=== PATIENT | male | born 1945 | race Caucasian/White ===

== ENCOUNTER → 2020-01-16 | Outpatient (REF) | payer MEDICARE, OTHER ==
[2020-01-16 12:12] LABS: ALBUMIN 3.7 GM/DL (3.2-5.2); ALT/SGPT 45 U/L (12-78); BILIRUBIN,TOTAL 0.6 MG/DL (0.2-1.0); BLOOD UREA NITROGEN 22 MG/DL (7-18); CALCIUM LEVEL 9.3 MG/DL (8.8-10.2); CARBON DIOXIDE LEVEL 27 MEQ/L (21-32); CHLORIDE LEVEL 107 MEQ/L (98-107); CHOLESTEROL LEVEL 160 MG/DL (<200); CHOLESTEROL RISK RATIO 3.018 (<5); CREATININE FOR GFR 0.88 MG/DL (0.70-1.30); GLOMERULAR FILTRATION RATE > 60.0 (>42); GLUCOSE, FASTING 235 MG/DL (70-100); HDL CHOLESTEROL 53 MG/DL (>40); LDL CHOLESTEROL 60 MG/DL (<100); NON-HDL-C 107 MG/DL; POTASSIUM SERUM 4.7 MEQ/L (3.5-5.1); SODIUM LEVEL 140 MEQ/L (136-145); TRIGLYCERIDES LEVEL 233 MG/DL (<150)
== END ==
LOC: M SFHCCLAY 07:12
PROVIDERS: ATTEND Family Medicine
DX: I10 Essential (primary) hypertension (principal); E78.00 Pure hypercholesterolemia, unspecified; E03.9 Hypothyroidism, unspecified

== ENCOUNTER → 2020-05-07 | Outpatient (REF) | payer MEDICARE, OTHER ==
[2020-05-07 12:22] LABS: ALBUMIN 3.7 GM/DL (3.2-5.2); ALT/SGPT 41 U/L (12-78); BILIRUBIN,TOTAL 0.4 MG/DL (0.2-1.0); BLOOD UREA NITROGEN 22 MG/DL (7-18); CALCIUM LEVEL 9.5 MG/DL (8.8-10.2); CARBON DIOXIDE LEVEL 27 MEQ/L (21-32); CHLORIDE LEVEL 106 MEQ/L (98-107); CHOLESTEROL LEVEL 150 MG/DL (<200); CHOLESTEROL RISK RATIO 3.488 (<5); CREATININE FOR GFR 0.82 MG/DL (0.70-1.30); GLOMERULAR FILTRATION RATE > 60.0 (>42); GLUCOSE, FASTING 176 MG/DL (70-100); HDL CHOLESTEROL 43 MG/DL (>40); LDL CHOLESTEROL 48 MG/DL (<100); NON-HDL-C 107 MG/DL; POTASSIUM SERUM 4.2 MEQ/L (3.5-5.1); SODIUM LEVEL 141 MEQ/L (136-145); TOTAL PROTEIN 7.1 GM/DL (6.4-8.2); TRIGLYCERIDES LEVEL 297 MG/DL (<150)
[2020-05-07 13:47] LABS: HEMOGLOBIN A1c 9.6 %
== END ==
LOC: M SFHCCLAY 07:27
PROVIDERS: ATTEND Family Medicine
DX: E11.9 Type 2 diabetes mellitus without complications (principal); I10 Essential (primary) hypertension; E03.9 Hypothyroidism, unspecified; E78.00 Pure hypercholesterolemia, unspecified

== ENCOUNTER → 2020-08-26 | Outpatient (REF) | payer MEDICARE, OTHER ==
[2020-08-26 13:51] LABS: BLOOD UREA NITROGEN 25 MG/DL (7-18); CALCIUM LEVEL 9.8 MG/DL (8.8-10.2); CARBON DIOXIDE LEVEL 32 MEQ/L (21-32); CHLORIDE LEVEL 104 MEQ/L (98-107); CHOLESTEROL LEVEL 177 MG/DL (<200); CREATININE FOR GFR 0.92 MG/DL (0.70-1.30); GLOMERULAR FILTRATION RATE > 60.0 (>42); GLUCOSE, FASTING 229 MG/DL (70-100); HDL CHOLESTEROL 51 MG/DL (>40); LDL CHOLESTEROL 76 MG/DL (<100); NON-HDL-C 126 MG/DL; NT-PRO BNP 302 PG/ML (<450); POTASSIUM SERUM 3.9 MEQ/L (3.5-5.1); SODIUM LEVEL 140 MEQ/L (136-145); TRIGLYCERIDES LEVEL 252 MG/DL (<150)
== END ==
LOC: M LABDRAWC 11:05
PROVIDERS: ATTEND Internal Medicine Cardiovascular Disease
DX: I50.32 Chronic diastolic (congestive) heart failure (principal); E78.2 Mixed hyperlipidemia

== ENCOUNTER → 2020-08-26 | Outpatient (REF) | payer MEDICARE, OTHER ==
[2020-08-26 13:51] LABS: BLOOD UREA NITROGEN 25 MG/DL (7-18); CALCIUM LEVEL 10.1 MG/DL (8.8-10.2); CARBON DIOXIDE LEVEL 30 MEQ/L (21-32); CHLORIDE LEVEL 104 MEQ/L (98-107); CREATININE FOR GFR 0.98 MG/DL (0.70-1.30); GLOMERULAR FILTRATION RATE > 60.0 (>42); GLUCOSE, FASTING 230 MG/DL (70-100); SODIUM LEVEL 142 MEQ/L (136-145)
[2020-08-26 13:59] LABS: TOTAL 25(OH) VITAMIN D 36.7 NG/ML (30.0-100.0)
[2020-08-26 14:31] LABS: HEMOGLOBIN A1c 9.5 %
[2020-08-26 14:38] LABS: HEPATITIS C VIRUS ABY INDEX 0.1 INDEX (<0.8)
== END ==
LOC: M SFHCCLAY 08:47
PROVIDERS: ATTEND Family Medicine
DX: I11.9 Hypertensive heart disease without heart failure (principal); E11.9 Type 2 diabetes mellitus without complications; E03.9 Hypothyroidism, unspecified; I50.32 Chronic diastolic (congestive) heart failure; E78.2 Mixed hyperlipidemia; Z79.899 Other long term (current) drug therapy

== ENCOUNTER → 2020-08-27 | Outpatient (REF) | payer MEDICARE, OTHER ==
[2020-08-27 17:41] LABS: CREATININE, URINE 75.6 MG/DL; MALB URINE SIEMENS 25.7 MG/L; MAU/CREAT RATIO 33.9 MCG/MG (0.0-30.0)
== END ==
LOC: M SFHCCLAY 11:04
PROVIDERS: ATTEND Family Medicine
DX: E11.9 Type 2 diabetes mellitus without complications (principal)

== ENCOUNTER → 2021-01-19 | Outpatient (REF) | payer MEDICARE, OTHER ==
[2021-01-19 12:00] LABS: HEMOGLOBIN A1c 10.6 %
[2021-01-19 12:19] LABS: BLOOD UREA NITROGEN 24 MG/DL (7-18); CALCIUM LEVEL 10.1 MG/DL (8.8-10.2); CARBON DIOXIDE LEVEL 30 MEQ/L (21-32); CHLORIDE LEVEL 103 MEQ/L (98-107); CREATININE FOR GFR 0.82 MG/DL (0.70-1.30); GLOMERULAR FILTRATION RATE > 60.0 (>42); GLUCOSE, FASTING 251 MG/DL (70-100); POTASSIUM SERUM 4.3 MEQ/L (3.5-5.1); SODIUM LEVEL 140 MEQ/L (136-145)
[2021-01-19 12:20] LABS: MAU/CREAT RATIO 171.8 MCG/MG (0.0-30.0)
[2021-01-21 06:55] LABS: FREE T4 1.29 NG/DL (0.76-1.46)
== END ==
LOC: M SFHCCLAY 07:23
PROVIDERS: ATTEND Family Medicine
DX: E11.9 Type 2 diabetes mellitus without complications (principal); I11.9 Hypertensive heart disease without heart failure; E03.9 Hypothyroidism, unspecified

== ENCOUNTER → 2021-07-27 | Outpatient (REF) | payer MEDICARE, OTHER ==
[2021-07-27 12:25] LABS: BLOOD UREA NITROGEN 19 MG/DL (7-18); CALCIUM LEVEL 9.5 MG/DL (8.8-10.2); CARBON DIOXIDE LEVEL 30 MEQ/L (21-32); CHLORIDE LEVEL 104 MEQ/L (98-107); CREATININE FOR GFR 0.75 MG/DL (0.70-1.30); GLOMERULAR FILTRATION RATE > 60.0 (>42); GLUCOSE, FASTING 176 MG/DL (70-100); POTASSIUM SERUM 4.3 MEQ/L (3.5-5.1); SODIUM LEVEL 141 MEQ/L (136-145)
[2021-07-27 12:37] LABS: TOTAL 25(OH) VITAMIN D 29.9 NG/ML (30.0-100.0)
== END ==
LOC: M SFHCCLAY 07:13
PROVIDERS: ATTEND Family Medicine
DX: Z00.00 Encounter for general adult medical examination without abnormal findings (principal); I11.9 Hypertensive heart disease without heart failure; Z13.21 Encounter for screening for nutritional disorder; Z79.899 Other long term (current) drug therapy

== ENCOUNTER → 2021-11-27 | Outpatient (REF) | payer MEDICARE, OTHER ==
[2021-11-27 16:51] LABS: MAU/CREAT RATIO 130.1 MCG/MG (0.0-30.0)
[2021-11-27 16:57] LABS: FREE T4 1.24 NG/DL (0.76-1.46); THYROID STIMULATING HORMONE 13.7 uIU/ML (0.358-3.740)
== END ==
LOC: M LABDRAWC 15:54
PROVIDERS: ATTEND Nurse Practitioner Family
DX: E03.9 Hypothyroidism, unspecified (principal); E11.65 Type 2 diabetes mellitus with hyperglycemia

== ENCOUNTER → 2021-11-27 | Outpatient (REF) | payer MEDICARE, OTHER ==
[2021-11-27 16:18] LABS: BASO # 0.2 10^3/uL (0.0-0.2); BASO % 2.9 % (0.0-1.0); EOS # 0.3 10^3/uL (0.0-0.5); EOS % 6.1 % (0.0-3.0); HEMATOCRIT 45.2 % (42.0-52.0); HEMOGLOBIN 14.9 g/dl (13.5-17.5); LYMPH # 1.7 10^3/uL (1.5-5.0); MEAN CORPUSCULAR HEMOGLOBIN 32.1 pg (27.0-33.0); MEAN CORPUSCULAR VOLUME 97.4 fl (80.0-96.0); MONO # 0.8 10^3/uL (0.0-0.8); MONO % 13.7 % (2.0-8.0); NEUTROPHILS # 2.6 10^3/uL (1.5-8.5); NEUTROPHILS % 45.9 % (36.0-66.0); PLATELET COUNT, AUTOMATED 181 10^3/uL (150-450); RED BLOOD COUNT 4.64 10^6/uL (4.30-6.10); WHITE BLOOD COUNT 5.6 10^3/uL (4.0-10.0)
[2021-11-27 16:44] LABS: ALBUMIN 3.8 GM/DL (3.2-5.2); ALT/SGPT 83 U/L (12-78); BILIRUBIN,TOTAL 0.4 MG/DL (0.2-1.0); BLOOD UREA NITROGEN 20 MG/DL (7-18); CALCIUM LEVEL 9.6 MG/DL (8.8-10.2); CARBON DIOXIDE LEVEL 30 MEQ/L (21-32); CHLORIDE LEVEL 104 MEQ/L (98-107); CHOLESTEROL LEVEL 247 MG/DL (<200); CHOLESTEROL RISK RATIO 5.488 (<5); CREATININE FOR GFR 0.91 MG/DL (0.70-1.30); GLOMERULAR FILTRATION RATE > 60.0 (>42); GLUCOSE, FASTING 181 MG/DL (70-100); HDL CHOLESTEROL 45 MG/DL (>40); LDL CHOLESTEROL 127 MG/DL (<100); MAGNESIUM LEVEL 1.9 MG/DL (1.8-2.4); NON-HDL-C 202 MG/DL; NT-PRO BNP 297 PG/ML (<450); POTASSIUM SERUM 4.4 MEQ/L (3.5-5.1); SODIUM LEVEL 140 MEQ/L (136-145); TOTAL PROTEIN 7.1 GM/DL (6.4-8.2); TRIGLYCERIDES LEVEL 376 MG/DL (<150)
== END ==
LOC: M LABDRAWC 15:52
PROVIDERS: ATTEND Physician Assistant
DX: E78.2 Mixed hyperlipidemia (principal); I48.11 Longstanding persistent atrial fibrillation; I50.32 Chronic diastolic (congestive) heart failure; I10 Essential (primary) hypertension

== ENCOUNTER → 2021-11-27 | Outpatient (REF) | payer MEDICARE, OTHER ==
[2021-11-27 16:49] LABS: BLOOD UREA NITROGEN 20 MG/DL (7-18); CALCIUM LEVEL 9.6 MG/DL (8.8-10.2); CARBON DIOXIDE LEVEL 30 MEQ/L (21-32); CHLORIDE LEVEL 103 MEQ/L (98-107); CREATININE FOR GFR 0.93 MG/DL (0.70-1.30); FREE T4 1.25 NG/DL (0.76-1.46); GLOMERULAR FILTRATION RATE > 60.0 (>42); GLUCOSE, FASTING 193 MG/DL (70-100); POTASSIUM SERUM 4.1 MEQ/L (3.5-5.1); SODIUM LEVEL 140 MEQ/L (136-145)
== END ==
LOC: M SFHCCLAY 08:08
PROVIDERS: ATTEND Family Medicine
DX: I11.9 Hypertensive heart disease without heart failure (principal); E03.9 Hypothyroidism, unspecified

== ENCOUNTER → 2022-02-15 | Outpatient (REF) | payer MEDICARE, OTHER ==
[2022-02-15 12:13] LABS: BLOOD UREA NITROGEN 18 MG/DL (7-18); CALCIUM LEVEL 9.6 MG/DL (8.8-10.2); CARBON DIOXIDE LEVEL 29 MEQ/L (21-32); CHLORIDE LEVEL 105 MEQ/L (98-107); CREATININE FOR GFR 0.81 MG/DL (0.70-1.30); GLOMERULAR FILTRATION RATE > 60.0 (>42); GLUCOSE, FASTING 148 MG/DL (70-100); SODIUM LEVEL 140 MEQ/L (136-145)
== END ==
LOC: M LABDRAWC 11:09
PROVIDERS: ATTEND Physician Assistant
DX: I10 Essential (primary) hypertension (principal)

== ENCOUNTER → 2022-02-15 | Outpatient (REF) | payer MEDICARE, OTHER ==
[2022-02-15 12:21] LABS: FREE T4 1.33 NG/DL (0.76-1.46); THYROID STIMULATING HORMONE 5.78 uIU/ML (0.358-3.740)
== END ==
LOC: M LABDRAWC 11:08
PROVIDERS: ATTEND Nurse Practitioner Family
DX: E03.9 Hypothyroidism, unspecified (principal)

== ENCOUNTER → 2022-06-01 | Outpatient (REF) | payer MEDICARE, OTHER ==
[2022-06-01 16:17] LABS: FREE T4 1.39 NG/DL (0.76-1.46); THYROID STIMULATING HORMONE 2.68 uIU/ML (0.358-3.740)
== END ==
LOC: M LABDRAWC 15:36
PROVIDERS: ATTEND Nurse Practitioner Family
DX: E03.9 Hypothyroidism, unspecified (principal)

== ENCOUNTER → 2022-06-10 | Outpatient (REF) | payer MEDICARE, OTHER | LOC: M LAB REF 16:49 | PROVIDERS: ATTEND Nurse Practitioner Family | DX: E11.65 Type 2 diabetes mellitus with hyperglycemia (principal) ==

== ENCOUNTER → 2022-11-23 | Outpatient (REF) | payer MEDICARE, OTHER ==
[2022-11-23 12:20] LABS: ALBUMIN 3.8 G/DL (3.2-5.2); ALKALINE PHOSPHATASE 68 U/L (46-116); ALT/SGPT 39 U/L (7.0-40); AST/SGOT 35 U/L (<34); BILIRUBIN,TOTAL 0.7 MG/DL (0.3-1.2); BLOOD UREA NITROGEN 18 MG/DL (9-23); CALCIUM LEVEL 9.3 MG/DL (8.3-10.6); CARBON DIOXIDE LEVEL 30 MMOL/L (20-31); CHLORIDE LEVEL 101 MMOL/L (98-107); CHOLESTEROL LEVEL 114 MG/DL (<200); CHOLESTEROL RISK RATIO 2.51 (<5); CREATININE FOR GFR 0.65 MG/DL (0.70-1.30); GLOMERULAR FILTRATION RATE > 60.0 (>42); GLUCOSE, FASTING 179 MG/DL (74-106); HDL CHOLESTEROL 45.4 MG/DL (>40); LDL CHOLESTEROL 30.6 MG/DL (<100); NON-HDL-C 69 MG/DL; POTASSIUM SERUM 3.6 MMOL/L (3.5-5.1); SODIUM LEVEL 141 MMOL/L (136-145); TOTAL PROTEIN 6.9 G/DL (5.7-8.2); TRIGLYCERIDES LEVEL 190 MG/DL (<150)
[2022-11-23 12:23] LABS: FREE T4 1.41 NG/DL (0.89-1.76); THYROID STIMULATING HORMONE 4.254 uIU/ML (0.55-4.78)
[2022-11-23 12:57] LABS: HEMOGLOBIN A1c 10.9 % (4.0-6.0)
[2022-11-23 14:00] LABS: TOTAL 25(OH) VITAMIN D 59.4 NG/ML (20.0-100.0)
== END ==
LOC: M SFHCCLAY 07:48
PROVIDERS: ATTEND Nurse Practitioner Family
DX: E11.9 Type 2 diabetes mellitus without complications (principal); E78.00 Pure hypercholesterolemia, unspecified; E03.9 Hypothyroidism, unspecified; E55.9 Vitamin D deficiency, unspecified

== ENCOUNTER → 2023-02-25 | Outpatient (REF) | payer MEDICARE, OTHER ==
[~2023-02-25] MED LIST: ALPR0.25 PO; ASPI81TA26 PO; CENT1TAB PO; CHLO125TA PO; COQ1200C3 PO; ELIQ5TAB PO; FARX1TAB5 PO; LANTINJ4 SQ; LEVO175T2 PO; METF-838 PO; RA M500C PO; THERCAP7 PO; VITA500C19 PO; ZYRT10TA12 PO
[2023-02-25 12:31] LABS: ALBUMIN 3.7 G/DL (3.2-5.2); ALKALINE PHOSPHATASE 67 U/L (46-116); ALT/SGPT 40 U/L (7.0-40); AST/SGOT 31 U/L (<34); BILIRUBIN,TOTAL 0.6 MG/DL (0.3-1.2); BLOOD UREA NITROGEN 21 MG/DL (9-23); CALCIUM LEVEL 9.3 MG/DL (8.3-10.6); CARBON DIOXIDE LEVEL 28 MMOL/L (20-31); CHLORIDE LEVEL 103 MMOL/L (98-107); CREATININE FOR GFR 0.65 MG/DL (0.70-1.30); GLOMERULAR FILTRATION RATE > 60.0 (>42); GLUCOSE, FASTING 230 MG/DL (74-106); POTASSIUM SERUM 3.7 MMOL/L (3.5-5.1); SODIUM LEVEL 140 MMOL/L (136-145); TOTAL PROTEIN 6.6 G/DL (5.7-8.2)
[2023-02-25 12:33] LABS: HEMOGLOBIN A1c 10.2 % (4.0-6.0)
== END ==
LOC: M SFHCCLAY 08:02
PROVIDERS: ATTEND Nurse Practitioner Family
DX: E11.9 Type 2 diabetes mellitus without complications (principal)

== ENCOUNTER 2023-03-21 12:11 | Inpatient (IN) | payer MEDICARE, BC, OTHER ==
[~2023-03-21] VITALS: Ht 180.3 cm; Wt 113.6 kg
[~2023-03-21 12:11] MED LIST changes: +LANTINJ4 SC; -LANTINJ4 SQ
[2023-03-21] MEDS ORDERED: ONDANSETRON 4MG 2ML VIAL IV ONE (13:10)
[2023-03-21] MEDS ORDERED: MORPHINE 2 MG/ML 1ML VIAL IV ONE (13:10)
[2023-03-21 14:13] LABS: BASO # 0.1 10^3/uL (0.0-0.2); EOS # 0.1 10^3/uL (0.0-0.5); EOS % 0.6 % (0.0-3.0); HEMATOCRIT 47.9 % (42.0-52.0); LYMPH # 1.2 10^3/uL (1.5-5.0); LYMPH % 12.2 % (24.0-44.0); MEAN CORPUSCULAR HEMOGLOBIN 32.3 pg (27.0-33.0); MEAN CORPUSCULAR HGB CONC 33.4 g/dl (32.0-36.5); MEAN CORPUSCULAR VOLUME 96.8 fl (80.0-96.0); MONO % 9.8 % (2.0-8.0); NEUTROPHILS # 7.5 10^3/uL (1.5-8.5); NEUTROPHILS % 75.7 % (36.0-66.0); PLATELET COUNT, AUTOMATED 195 10^3/uL (150-450); RED BLOOD COUNT 4.95 10^6/uL (4.30-6.10)
[2023-03-21] MEDS ORDERED: ISOVUE-370 76% 100ML VIAL As Ordered ONE (14:22)
[2023-03-21 14:23] LABS: INR 1.11; PROTHROMBIN TIME 14.5 SECONDS (12.5-14.5)
[2023-03-21 14:24] LABS: PARTIAL THROMBOPLASTIN TIME 29.8 SECONDS (24.8-34.2)
[2023-03-21 14:35] LABS: LIPASE 27 U/L (12-53)
[2023-03-21 14:37] LABS: CPK CREATINE PHOSPHOKINASE 63 U/L (46-171)
[2023-03-21 14:38] LABS: ALBUMIN 3.6 G/DL (3.2-5.2); ALKALINE PHOSPHATASE 84 U/L (46-116); ALT/SGPT 27 U/L (7.0-40); AST/SGOT 18 U/L (<34); BILIRUBIN,DIRECT 0.2 MG/DL (<0.4); BILIRUBIN,TOTAL 0.8 MG/DL (0.3-1.2); BLOOD UREA NITROGEN 27 MG/DL (9-23); CALCIUM LEVEL 10.1 MG/DL (8.3-10.6); CARBON DIOXIDE LEVEL 28 MMOL/L (20-31); CHLORIDE LEVEL 100 MMOL/L (98-107); CK-MB VALUE MASS 2.4 NG/ML (<3.6); CREATININE FOR GFR 0.66 MG/DL (0.70-1.30); GLOMERULAR FILTRATION RATE > 60.0 (>42); GLUCOSE, FASTING 331 MG/DL (74-106); POTASSIUM SERUM 4.3 MMOL/L (3.5-5.1); SODIUM LEVEL 137 MMOL/L (136-145)
[2023-03-21] MEDS ORDERED: MORPHINE 4 MG/ML 1ML VIAL IV ONE (14:40)
[2023-03-21 14:43] LABS: RSV AMPLIFICATION NEGATIVE (NEGATIVE)
[2023-03-21] MEDS ORDERED: LIDOCAINE 5% (LIDODERM) PATCH TD ONE (14:45)
[2023-03-21 16:42] LABS: CK-MB VALUE MASS 1.7 NG/ML (<3.6)
[2023-03-21 16:44] LABS: MB/CK RELATIVE INDEX 2.5 (< OR =4)
[2023-03-21 18:50] VITALS: O2SAT 92
[2023-03-21] MEDS ORDERED: GLUCOSE 4GM CHEW TABLET PO PRN (19:40)
[2023-03-21] MEDS ORDERED: GLUCAGON INJ 1MG VIAL SC PRN (19:40)
[2023-03-21] MEDS ORDERED: DEXTROSE 50% 50ML SYRINGE IV PRN (19:40)
[2023-03-21] MEDS ORDERED: CALCITONIN NASAL SPRAY 3.7ML BTL ONE (19:40)
[2023-03-21] MEDS ORDERED: PERCOCET 5MG/325MG TAB PO PRN (19:40)
[2023-03-21] MEDS ORDERED: ACETAMINOPHEN TAB 650MG DOSE (2X325MG) PO PRN (19:40)
[2023-03-21] MEDS ORDERED: CYCL-707 PO (19:41)
[2023-03-21] MEDS ORDERED: HYDR-3713 PO (19:41)
[2023-03-21] MEDS ORDERED: ALPH600C PO (19:41)
[2023-03-21] MEDS ORDERED: C-101TAB3 PO (19:41)
[2023-03-21] MEDS ORDERED: MAGN400T2 PO (19:41)
[2023-03-21] MEDS ORDERED: CO Q100C2 PO (19:41)
[2023-03-21] MEDS ORDERED: HOME MED LIST COMPLETE! XX SCH (19:45)
[2023-03-21] MEDS: LIDOCAINE 5% (LIDODERM) PATCH TD SCH (19:58)
[2023-03-21] MEDS: CALCITONIN NASAL SPRAY 3.7ML BTL SCH (20:00)
[2023-03-21] MEDS ORDERED: CYCLOBENZAPRINE 10MG TABLET PO PRN (20:15)
[2023-03-21] MEDS ORDERED: ALPRAZolam 0.25 MG TAB PO PRN (20:15)
[2023-03-21] MEDS ORDERED: INSULIN LISPRO (NovoLOG) PER UNIT SC SCH (21:00)
[2023-03-21] MEDS ORDERED: MAGNESIUM OXIDE 400MG TAB (MAG-OX) PO SCH (21:00)
[2023-03-21] MEDS ORDERED: LEVEMIR (INSULIN DETEMIR) 1 UNITS/0.01ML SC SCH (21:00)
[2023-03-21 22:26] VITALS: BP 155/73
[2023-03-21] MEDS: DOCUSATE SODIUM 100MG CAPSULE PO SCH (23:02)
[2023-03-21] MEDS: APIXABAN 5 MG TAB (ELIQUIS) PO SCH (23:02)
[2023-03-21] MEDS: PERCOCET 5MG/325MG TAB PO PRN (23:48)
[2023-03-22 06:00] VITALS: BP 140/81
[2023-03-22] MEDS ORDERED: LEVOTHYROXINE 100MCG TABLET (0.1MG) PO SCH (06:00)
[2023-03-22] MEDS ORDERED: LEVOTHYROXINE 75MCG TABLET (0.075MG) PO SCH (06:00)
[2023-03-22 06:35] LABS: HEMOGLOBIN 16.2 g/dl (13.5-17.5); MEAN CORPUSCULAR HEMOGLOBIN 32.5 pg (27.0-33.0); MEAN CORPUSCULAR HGB CONC 33.1 g/dl (32.0-36.5); MEAN CORPUSCULAR VOLUME 98.4 fl (80.0-96.0); PLATELET COUNT, AUTOMATED 197 10^3/uL (150-450); RED BLOOD COUNT 4.98 10^6/uL (4.30-6.10); WHITE BLOOD COUNT 9.2 10^3/uL (4.0-10.0)
[2023-03-22 08:22] LABS: BLOOD UREA NITROGEN 28 MG/DL (9-23); CALCIUM LEVEL 9.8 MG/DL (8.3-10.6); CARBON DIOXIDE LEVEL 28 MMOL/L (20-31); CHLORIDE LEVEL 101 MMOL/L (98-107); CREATININE FOR GFR 0.82 MG/DL (0.70-1.30); GLOMERULAR FILTRATION RATE > 60.0 (>42); GLUCOSE, FASTING 173 MG/DL (74-106); POTASSIUM SERUM 4.2 MMOL/L (3.5-5.1); SODIUM LEVEL 139 MMOL/L (136-145)
[2023-03-22] MEDS ORDERED: CETIRIZINE (ZyrTEC) 10 MG TAB PO SCH (09:00)
[2023-03-22] MEDS ORDERED: ASPIRIN 81MG ENTERIC TABLET PO SCH (09:00)
[2023-03-22] MEDS ORDERED: CHLORTHALIDONE 12.5MG PER 1/2 TABLET PO SCH (09:00)
[2023-03-22] MEDS: INSULIN LISPRO (NovoLOG) PER UNIT SC SCH ×2 (09:11→12:19)
[2023-03-22] MEDS: DOCUSATE SODIUM 100MG CAPSULE PO SCH (09:11)
[2023-03-22] MEDS: APIXABAN 5 MG TAB (ELIQUIS) PO SCH (09:11)
[2023-03-22] MEDS: CALCITONIN NASAL SPRAY 3.7ML BTL SCH (09:12)
[2023-03-22] MEDS: LIDOCAINE 5% (LIDODERM) PATCH TD SCH (09:12)
[2023-03-22] MEDS: PERCOCET 5MG/325MG TAB PO PRN (11:40)
[2023-03-22] MEDS ORDERED: CALC20SPR (13:30)
== END 2023-03-22 14:10 | DRG 543 ==
LOC: M ED 12:11 → EDBD 12:11 → M ED INP 19:39 → ENRESERV 22:14 → M MS5PR 22:25
PROVIDERS: ADMIT Internal Medicine; ATTEND Internal Medicine
DX: M48.54XA Collapsed vertebra, not elsewhere classified, thoracic region, initial encounter for fracture (principal); J98.11 Atelectasis; E11.9 Type 2 diabetes mellitus without complications; I10 Essential (primary) hypertension; E03.9 Hypothyroidism, unspecified; I48.91 Unspecified atrial fibrillation; J44.9 Chronic obstructive pulmonary disease, unspecified; E78.5 Hyperlipidemia, unspecified; Z79.01 Long term (current) use of anticoagulants; F41.9 Anxiety disorder, unspecified; F32.A Depression, unspecified; Z79.899 Other long term (current) drug therapy; Z79.4 Long term (current) use of insulin; Z98.41 Cataract extraction status, right eye; Z98.42 Cataract extraction status, left eye

== ENCOUNTER 2023-03-22 14:02 | Inpatient (IN) | payer MEDICARE, BC, OTHER ==
[~2023-03-22] VITALS: Ht 180.3 cm; Wt 118.1 kg
[2023-03-22 14:00] VITALS: BP 125/81
[~2023-03-22 14:02] MED LIST changes: +ALPH600C PO; +C-101TAB3 PO; +CALC20SPR; +CO Q100C2 PO; +CYCL-707 PO; +HYDR-3713 PO; +MAGN400T2 PO
[2023-03-22] MEDS ORDERED: DEXTROSE 50% 50ML SYRINGE IV PRN (17:05)
[2023-03-22] MEDS ORDERED: GLUCAGON INJ 1MG VIAL SC PRN (17:05)
[2023-03-22] MEDS ORDERED: GLUCOSE 4GM CHEW TABLET PO PRN (17:05)
[2023-03-22] MEDS: SUCRALFATE 1 GM TAB PO SCH (18:44)
[2023-03-22] MEDS: INSULIN LISPRO (NovoLOG) PER UNIT SC SCH ×2 (18:44→20:40)
[2023-03-22 20:00] VITALS: BP 146/74
[2023-03-22] MEDS: APIXABAN 5 MG TAB (ELIQUIS) PO SCH (20:32)
[2023-03-22] MEDS: SENNA 8.6 MG TAB (SENOKOT) PO SCH (20:32)
[2023-03-22] MEDS: MAGNESIUM OXIDE 400MG TAB (MAG-OX) PO SCH (20:32)
[2023-03-22] MEDS: DOCUSATE SODIUM 100MG CAPSULE PO SCH (20:32)
[2023-03-22] MEDS: PANTOPRAZOLE 40MG TAB (PROTONIX) PO SCH (20:32)
[2023-03-22] MEDS: oxyCODONE 5MG TAB PO PRN (20:34)
[2023-03-22] MEDS: ACETAMINOPHEN 500 MG TAB PO SCH (20:35)
[2023-03-22] MEDS: LEVEMIR (INSULIN DETEMIR) 1 UNITS/0.01ML SC SCH (20:36)
[2023-03-23 06:00] VITALS: BP 144/84
[2023-03-23] MEDS: LEVOTHYROXINE 150MCG TABLET (0.15MG) PO SCH (06:25)
[2023-03-23] MEDS: LEVOTHYROXINE 25MCG TABLET (0.025MG) PO SCH (06:25)
[2023-03-23 06:43] LABS: BASO # 0.1 10^3/uL (0.0-0.2); BASO % 0.8 % (0.0-1.0); EOS # 0.2 10^3/uL (0.0-0.5); EOS % 1.9 % (0.0-3.0); HEMATOCRIT 45.2 % (42.0-52.0); HEMOGLOBIN 14.8 g/dl (13.5-17.5); MEAN CORPUSCULAR HEMOGLOBIN 31.8 pg (27.0-33.0); MEAN CORPUSCULAR HGB CONC 32.7 g/dl (32.0-36.5); MEAN CORPUSCULAR VOLUME 97.2 fl (80.0-96.0); MONO # 1.2 10^3/uL (0.0-0.8); MONO % 11.7 % (2.0-8.0); NEUTROPHILS # 8.1 10^3/uL (1.5-8.5); PLATELET COUNT, AUTOMATED 199 10^3/uL (150-450); RED BLOOD COUNT 4.65 10^6/uL (4.30-6.10); WHITE BLOOD COUNT 10.6 10^3/uL (4.0-10.0)
[2023-03-23 07:20] LABS: ALBUMIN 2.8 G/DL (3.2-5.2); ALKALINE PHOSPHATASE 82 U/L (46-116); ALT/SGPT 23 U/L (7.0-40); AST/SGOT 26 U/L (<34); BILIRUBIN,TOTAL 0.6 MG/DL (0.3-1.2); BLOOD UREA NITROGEN 29 MG/DL (9-23); CARBON DIOXIDE LEVEL 30 MMOL/L (20-31); CHLORIDE LEVEL 103 MMOL/L (98-107); CREATININE FOR GFR 0.96 MG/DL (0.70-1.30); GLOMERULAR FILTRATION RATE > 60.0 (>42); GLUCOSE, FASTING 221 MG/DL (74-106); SODIUM LEVEL 139 MMOL/L (136-145); TOTAL PROTEIN 6.2 G/DL (5.7-8.2)
[2023-03-23] MEDS: DOCUSATE SODIUM 100MG CAPSULE PO SCH ×2 (07:41→20:41)
[2023-03-23] MEDS: ASPIRIN 81MG ENTERIC TABLET PO SCH (07:41)
[2023-03-23] MEDS: APIXABAN 5 MG TAB (ELIQUIS) PO SCH ×2 (07:41→20:41)
[2023-03-23] MEDS: CHLORTHALIDONE 12.5MG PER 1/2 TABLET PO SCH (07:41)
[2023-03-23] MEDS: SUCRALFATE 1 GM TAB PO SCH ×3 (07:41→17:04)
[2023-03-23] MEDS: PANTOPRAZOLE 40MG TAB (PROTONIX) PO SCH ×2 (07:41→20:41)
[2023-03-23] MEDS: CETIRIZINE (ZyrTEC) 10 MG TAB PO SCH (07:41)
[2023-03-23] MEDS: oxyCODONE 5MG TAB PO PRN ×3 (07:42→20:42)
[2023-03-23] MEDS: ACETAMINOPHEN 500 MG TAB PO SCH ×3 (07:42→20:42)
[2023-03-23] MEDS: LIDOCAINE 5% (LIDODERM) PATCH TD SCH (07:43)
[2023-03-23] MEDS: MAGNESIUM OXIDE 400MG TAB (MAG-OX) PO SCH (07:43)
[2023-03-23] MEDS: INSULIN LISPRO (NovoLOG) PER UNIT SC SCH ×4 (07:43→20:28)
[2023-03-23] MEDS: CALCITONIN NASAL SPRAY 3.7ML BTL SCH (13:49)
[2023-03-23 14:15] VITALS: BP 141/89
[2023-03-23] MEDS: GABAPENTIN 100 MG CAP PO SCH ×2 (14:24→20:41)
[2023-03-23] MEDS: MIRALAX *UNIT DOSE* 17GM PACKET PO SCH ×2 (14:24→21:00)
[2023-03-23] MEDS: COMBIVENT RESPIMAT 100-20MCG INHALER 4GM INH SCH ×2 (14:43→19:30)
[2023-03-23 20:00] VITALS: BP 160/84
[2023-03-23] MEDS: SENNA 8.6 MG TAB (SENOKOT) PO SCH (20:41)
[2023-03-23] MEDS: LEVEMIR (INSULIN DETEMIR) 1 UNITS/0.01ML SC SCH (20:44)
[2023-03-24] MEDS: oxyCODONE 5MG TAB PO PRN (01:38)
[2023-03-24 06:03] VITALS: BP 152/80
[2023-03-24] MEDS: LEVOTHYROXINE 25MCG TABLET (0.025MG) PO SCH (06:24)
[2023-03-24] MEDS: LEVOTHYROXINE 150MCG TABLET (0.15MG) PO SCH (06:24)
[2023-03-24] MEDS: COMBIVENT RESPIMAT 100-20MCG INHALER 4GM INH SCH ×3 (07:37→20:52)
[2023-03-24] MEDS ORDERED: HOME MED LIST COMPLETE! XX SCH (08:40)
[2023-03-24] MEDS: SUCRALFATE 1 GM TAB PO SCH ×3 (08:47→16:15)
[2023-03-24] MEDS: LIDOCAINE 5% (LIDODERM) PATCH TD SCH (08:48)
[2023-03-24] MEDS: ACETAMINOPHEN 500 MG TAB PO SCH (08:48)
[2023-03-24] MEDS: MIRALAX *UNIT DOSE* 17GM PACKET PO SCH ×2 (08:48→22:10)
[2023-03-24] MEDS: APIXABAN 5 MG TAB (ELIQUIS) PO SCH ×2 (08:49→22:09)
[2023-03-24] MEDS: INSULIN LISPRO (NovoLOG) PER UNIT SC SCH ×4 (08:49→22:07)
[2023-03-24] MEDS: CHLORTHALIDONE 12.5MG PER 1/2 TABLET PO SCH (08:50)
[2023-03-24] MEDS: DOCUSATE SODIUM 100MG CAPSULE PO SCH ×2 (08:50→22:09)
[2023-03-24] MEDS: ASPIRIN 81MG ENTERIC TABLET PO SCH (08:50)
[2023-03-24] MEDS: CETIRIZINE (ZyrTEC) 10 MG TAB PO SCH (08:50)
[2023-03-24] MEDS: PANTOPRAZOLE 40MG TAB (PROTONIX) PO SCH ×2 (08:50→22:09)
[2023-03-24] MEDS: GABAPENTIN 100 MG CAP PO SCH ×3 (08:50→22:08)
[2023-03-24] MEDS: CALCITONIN NASAL SPRAY 3.7ML BTL SCH (09:03)
[2023-03-24] MEDS ORDERED: tiZANidine 4 MG TAB PO ONE (10:55)
[2023-03-24] MEDS ORDERED: PILL CUTTER 1 EACH XX PRN (11:00)
[2023-03-24 14:00] VITALS: BP 109/64
[2023-03-24] MEDS: PERCOCET 5MG/325MG TAB PO PRN ×2 (17:15→22:09)
[2023-03-24 20:00] VITALS: BP 129/61
[2023-03-24] MEDS ORDERED: LEVEMIR (INSULIN DETEMIR) 1 UNITS/0.01ML SC SCH (21:00)
[2023-03-24] MEDS: SENNA 8.6 MG TAB (SENOKOT) PO SCH (22:09)
[2023-03-24] MEDS: MAGNESIUM OXIDE 400MG TAB (MAG-OX) PO SCH (22:09)
[2023-03-25] MEDS: LEVOTHYROXINE 25MCG TABLET (0.025MG) PO SCH (05:52)
[2023-03-25] MEDS: LEVOTHYROXINE 150MCG TABLET (0.15MG) PO SCH (05:52)
[2023-03-25 06:29] VITALS: BP 137/67
[2023-03-25] MEDS: COMBIVENT RESPIMAT 100-20MCG INHALER 4GM INH SCH ×3 (08:34→20:04)
[2023-03-25] MEDS: INSULIN LISPRO (NovoLOG) PER UNIT SC SCH ×4 (08:55→21:00)
[2023-03-25] MEDS: CETIRIZINE (ZyrTEC) 10 MG TAB PO SCH (08:56)
[2023-03-25] MEDS: GABAPENTIN 100 MG CAP PO SCH ×3 (08:56→22:01)
[2023-03-25] MEDS: PERCOCET 5MG/325MG TAB PO PRN ×3 (08:56→22:07)
[2023-03-25] MEDS: SUCRALFATE 1 GM TAB PO SCH ×3 (08:57→17:31)
[2023-03-25] MEDS: PANTOPRAZOLE 40MG TAB (PROTONIX) PO SCH ×2 (08:57→22:02)
[2023-03-25] MEDS: DOCUSATE SODIUM 100MG CAPSULE PO SCH ×2 (08:57→22:02)
[2023-03-25] MEDS: CHLORTHALIDONE 12.5MG PER 1/2 TABLET PO SCH (08:57)
[2023-03-25] MEDS: MIRALAX *UNIT DOSE* 17GM PACKET PO SCH ×2 (08:57→22:02)
[2023-03-25] MEDS: APIXABAN 5 MG TAB (ELIQUIS) PO SCH ×2 (08:57→22:02)
[2023-03-25] MEDS: CALCITONIN NASAL SPRAY 3.7ML BTL SCH (09:02)
[2023-03-25 10:41] LABS: BASO # 0.1 10^3/uL (0.0-0.2); BASO % 1.4 % (0.0-1.0); EOS # 0.3 10^3/uL (0.0-0.5); EOS % 3.9 % (0.0-3.0); HEMATOCRIT 42.7 % (42.0-52.0); HEMOGLOBIN 14.5 g/dl (13.5-17.5); LYMPH # 0.9 10^3/uL (1.5-5.0); LYMPH % 12.2 % (24.0-44.0); MEAN CORPUSCULAR HEMOGLOBIN 32.1 pg (27.0-33.0); MEAN CORPUSCULAR VOLUME 94.5 fl (80.0-96.0); MONO # 0.7 10^3/uL (0.0-0.8); MONO % 9.9 % (2.0-8.0); PLATELET COUNT, AUTOMATED 209 10^3/uL (150-450); RED BLOOD COUNT 4.52 10^6/uL (4.30-6.10)
[2023-03-25 11:16] LABS: BLOOD UREA NITROGEN 18 MG/DL (9-23); CALCIUM LEVEL 8.5 MG/DL (8.3-10.6); CARBON DIOXIDE LEVEL 24 MMOL/L (20-31); CHLORIDE LEVEL 100 MMOL/L (98-107); CREATININE FOR GFR 0.68 MG/DL (0.70-1.30); GLOMERULAR FILTRATION RATE > 60.0 (>42); GLUCOSE, FASTING 207 MG/DL (74-106); POTASSIUM SERUM 3.7 MMOL/L (3.5-5.1); SODIUM LEVEL 135 MMOL/L (136-145)
[2023-03-25 14:00] VITALS: BP 139/75
[2023-03-25] MEDS: BISACODYL 10MG SUPP PR PRN (16:01)
[2023-03-25 20:00] VITALS: BP 143/68
[2023-03-25] MEDS: SENNA 8.6 MG TAB (SENOKOT) PO SCH (22:01)
[2023-03-25] MEDS: MAGNESIUM OXIDE 400MG TAB (MAG-OX) PO SCH (22:02)
[2023-03-25] MEDS: LEVEMIR (INSULIN DETEMIR) 1 UNITS/0.01ML SC SCH (22:03)
[2023-03-26] MEDS: LEVOTHYROXINE 150MCG TABLET (0.15MG) PO SCH (05:50)
[2023-03-26] MEDS: LEVOTHYROXINE 25MCG TABLET (0.025MG) PO SCH (05:50)
[2023-03-26] MEDS: IBUPROFEN 400MG TAB PO PRN (05:52)
[2023-03-26 06:00] VITALS: BP 154/73
[2023-03-26] MEDS: SUCRALFATE 1 GM TAB PO SCH ×3 (08:11→16:50)
[2023-03-26] MEDS: MIRALAX *UNIT DOSE* 17GM PACKET PO SCH ×2 (08:12→21:44)
[2023-03-26] MEDS: INSULIN LISPRO (NovoLOG) PER UNIT SC SCH ×4 (08:12→21:45)
[2023-03-26] MEDS: CHLORTHALIDONE 12.5MG PER 1/2 TABLET PO SCH (08:12)
[2023-03-26] MEDS: DOCUSATE SODIUM 100MG CAPSULE PO SCH ×2 (08:12→21:47)
[2023-03-26] MEDS: APIXABAN 5 MG TAB (ELIQUIS) PO SCH ×2 (08:12→21:46)
[2023-03-26] MEDS: CETIRIZINE (ZyrTEC) 10 MG TAB PO SCH (08:13)
[2023-03-26] MEDS: PANTOPRAZOLE 40MG TAB (PROTONIX) PO SCH ×2 (08:13→21:47)
[2023-03-26] MEDS: PERCOCET 5MG/325MG TAB PO PRN ×3 (08:14→21:47)
[2023-03-26] MEDS: COMBIVENT RESPIMAT 100-20MCG INHALER 4GM INH SCH ×3 (08:29→19:53)
[2023-03-26] MEDS: GABAPENTIN 100 MG CAP PO SCH ×3 (09:47→21:46)
[2023-03-26] MEDS: CALCITONIN NASAL SPRAY 3.7ML BTL SCH (11:43)
[2023-03-26 14:00] VITALS: BP 114/58
[2023-03-26] MEDS: metFORMIN XR 500MG TAB *GLUCOPHAGE XR PO SCH (16:54)
[2023-03-26 20:00] VITALS: BP 144/76
[2023-03-26] MEDS: LEVEMIR (INSULIN DETEMIR) 1 UNITS/0.01ML SC SCH (21:45)
[2023-03-26] MEDS: SENNA 8.6 MG TAB (SENOKOT) PO SCH (21:46)
[2023-03-26] MEDS: MAGNESIUM OXIDE 400MG TAB (MAG-OX) PO SCH (21:47)
[2023-03-27] MEDS: LEVOTHYROXINE 150MCG TABLET (0.15MG) PO SCH (05:11)
[2023-03-27] MEDS: LEVOTHYROXINE 25MCG TABLET (0.025MG) PO SCH (05:11)
[2023-03-27] MEDS: PERCOCET 5MG/325MG TAB PO PRN ×4 (05:12→21:14)
[2023-03-27 06:00] VITALS: BP 146/74
[2023-03-27] MEDS: SUCRALFATE 1 GM TAB PO SCH ×3 (07:30→16:26)
[2023-03-27] MEDS: INSULIN LISPRO (NovoLOG) PER UNIT SC SCH ×4 (07:31→21:00)
[2023-03-27] MEDS: APIXABAN 5 MG TAB (ELIQUIS) PO SCH ×2 (07:32→21:14)
[2023-03-27] MEDS: DOCUSATE SODIUM 100MG CAPSULE PO SCH ×2 (07:32→21:14)
[2023-03-27] MEDS: CHLORTHALIDONE 12.5MG PER 1/2 TABLET PO SCH (07:32)
[2023-03-27] MEDS: metFORMIN XR 500MG TAB *GLUCOPHAGE XR PO SCH (07:32)
[2023-03-27] MEDS: GABAPENTIN 100 MG CAP PO SCH ×3 (07:33→21:15)
[2023-03-27] MEDS: PANTOPRAZOLE 40MG TAB (PROTONIX) PO SCH ×2 (07:33→21:14)
[2023-03-27] MEDS: CETIRIZINE (ZyrTEC) 10 MG TAB PO SCH (07:33)
[2023-03-27] MEDS: CALCITONIN NASAL SPRAY 3.7ML BTL SCH (07:42)
[2023-03-27] MEDS: COMBIVENT RESPIMAT 100-20MCG INHALER 4GM INH SCH ×3 (08:00→19:57)
[2023-03-27] MEDS: MIRALAX *UNIT DOSE* 17GM PACKET PO SCH ×2 (09:00→21:15)
[2023-03-27 14:00] VITALS: BP 132/63
[2023-03-27] MEDS: BISACODYL 10MG SUPP PR PRN (18:37)
[2023-03-27 20:00] VITALS: BP 146/68
[2023-03-27] MEDS: MAGNESIUM OXIDE 400MG TAB (MAG-OX) PO SCH (21:14)
[2023-03-27] MEDS: SENNA 8.6 MG TAB (SENOKOT) PO SCH (21:14)
[2023-03-27] MEDS: LEVEMIR (INSULIN DETEMIR) 1 UNITS/0.01ML SC SCH (21:15)
[2023-03-28 05:38] VITALS: BP 135/93
[2023-03-28] MEDS: LEVOTHYROXINE 150MCG TABLET (0.15MG) PO SCH (05:44)
[2023-03-28] MEDS: LEVOTHYROXINE 25MCG TABLET (0.025MG) PO SCH (05:44)
[2023-03-28] MEDS: PERCOCET 5MG/325MG TAB PO PRN (06:53)
[2023-03-28] MEDS: COMBIVENT RESPIMAT 100-20MCG INHALER 4GM INH SCH ×2 (07:44→13:01)
[2023-03-28] MEDS: CALCITONIN NASAL SPRAY 3.7ML BTL SCH (08:13)
[2023-03-28] MEDS: CETIRIZINE (ZyrTEC) 10 MG TAB PO SCH (08:14)
[2023-03-28] MEDS: SUCRALFATE 1 GM TAB PO SCH ×2 (08:14→12:23)
[2023-03-28] MEDS: metFORMIN XR 500MG TAB *GLUCOPHAGE XR PO SCH (08:14)
[2023-03-28] MEDS: APIXABAN 5 MG TAB (ELIQUIS) PO SCH (08:14)
[2023-03-28] MEDS: INSULIN LISPRO (NovoLOG) PER UNIT SC SCH ×2 (08:14→12:23)
[2023-03-28] MEDS: GABAPENTIN 100 MG CAP PO SCH (08:15)
[2023-03-28] MEDS: PANTOPRAZOLE 40MG TAB (PROTONIX) PO SCH (08:15)
[2023-03-28] MEDS: CHLORTHALIDONE 12.5MG PER 1/2 TABLET PO SCH (08:15)
[2023-03-28] MEDS: MIRALAX *UNIT DOSE* 17GM PACKET PO SCH (08:16)
[2023-03-28] MEDS: IBUPROFEN 400MG TAB PO PRN (08:16)
[2023-03-28] MEDS: DOCUSATE SODIUM 100MG CAPSULE PO SCH (08:16)
[2023-03-28] MEDS ORDERED: FARX1TAB5 PO (10:10)
[2023-03-28] MEDS ORDERED: ELIQ5TAB PO (10:10)
[2023-03-28] MEDS ORDERED: ASPI81TA26 PO (10:10)
[2023-03-28] MEDS ORDERED: GABA-1171 PO (10:10)
[2023-03-28] MEDS ORDERED: METF-838 PO (10:10)
[2023-03-28] MEDS ORDERED: PERCOCET PO (10:10)
[2023-03-28] MEDS ORDERED: PANT40TA29 PO (10:10)
[2023-03-28] MEDS ORDERED: CHLO125TA PO (10:10)
[2023-03-28] MEDS ORDERED: LEVO175T2 PO (10:10)
== END 2023-03-28 14:25 | disposition home or self-care (01) | DRG 561 ==
LOC: M PM&R 14:32
PROVIDERS: ADMIT Physical Medicine & Rehabilitation; ATTEND Physical Medicine & Rehabilitation
DX: M48.54XD Collapsed vertebra, not elsewhere classified, thoracic region, subsequent encounter for fracture with routine healing (principal); R26.89 Other abnormalities of gait and mobility; I48.91 Unspecified atrial fibrillation; R09.02 Hypoxemia; E11.9 Type 2 diabetes mellitus without complications; I10 Essential (primary) hypertension; J44.9 Chronic obstructive pulmonary disease, unspecified; E03.9 Hypothyroidism, unspecified; Z74.09 Other reduced mobility; Z74.1 Need for assistance with personal care; K59.00 Constipation, unspecified; R20.2 Paresthesia of skin; E78.5 Hyperlipidemia, unspecified; Z99.81 Dependence on supplemental oxygen; Z79.01 Long term (current) use of anticoagulants; Z79.4 Long term (current) use of insulin; Z79.890 Hormone replacement therapy; Z79.899 Other long term (current) drug therapy

== ENCOUNTER → 2023-04-21 | Outpatient (CLI) | payer MEDICARE, BC, OTHER ==
[~2023-04-21] MED LIST changes: +GABA-1171 PO; +PANT40TA29 PO; +PERCOCET PO
== END ==
LOC: M SOG 09:35
PROVIDERS: ATTEND Orthopaedic Surgery
DX: M54.6 Pain in thoracic spine (principal); M25.531 Pain in right wrist; M85.88 Other specified disorders of bone density and structure, other site; M47.814 Spondylosis without myelopathy or radiculopathy, thoracic region; Z87.81 Personal history of (healed) traumatic fracture

== ENCOUNTER → 2023-06-01 | Outpatient (REF) | payer MEDICARE, OTHER ==
[2023-06-01 17:32] LABS: BASO # 0.1 10^3/uL (0.0-0.2); BASO % 1.3 % (0.0-1.0); EOS # 0.1 10^3/uL (0.0-0.5); EOS % 2.1 % (0.0-3.0); HEMATOCRIT 43.7 % (42.0-52.0); HEMOGLOBIN 14.6 g/dl (13.5-17.5); LYMPH % 14.5 % (24.0-44.0); MEAN CORPUSCULAR HEMOGLOBIN 31.6 pg (27.0-33.0); MEAN CORPUSCULAR HGB CONC 33.4 g/dl (32.0-36.5); MEAN CORPUSCULAR VOLUME 94.6 fl (80.0-96.0); MONO # 0.6 10^3/uL (0.0-0.8); MONO % 9.6 % (2.0-8.0); NEUTROPHILS # 4.8 10^3/uL (1.5-8.5); NEUTROPHILS % 72.2 % (36.0-66.0); PLATELET COUNT, AUTOMATED 231 10^3/uL (150-450); RED BLOOD COUNT 4.62 10^6/uL (4.30-6.10); WHITE BLOOD COUNT 6.7 10^3/uL (4.0-10.0)
[2023-06-01 18:07] LABS: ALBUMIN 3.7 G/DL (3.2-5.2); ALKALINE PHOSPHATASE 142 U/L (46-116); ALT/SGPT 21 U/L (7.0-40); AST/SGOT 19 U/L (<34); BILIRUBIN,TOTAL 0.6 MG/DL (0.3-1.2); BLOOD UREA NITROGEN 23 MG/DL (9-23); CARBON DIOXIDE LEVEL 27 MMOL/L (20-31); CHLORIDE LEVEL 101 MMOL/L (98-107); CREATININE FOR GFR 0.74 MG/DL (0.70-1.30); GLOMERULAR FILTRATION RATE > 60.0 (>42); GLUCOSE, FASTING 155 MG/DL (74-106); POTASSIUM SERUM 3.9 MMOL/L (3.5-5.1); SODIUM LEVEL 140 MMOL/L (136-145); TOTAL PROTEIN 6.9 G/DL (5.7-8.2)
== END ==
LOC: M SFHCCLAY 11:22
PROVIDERS: ATTEND Nurse Practitioner Family
DX: K59.00 Constipation, unspecified (principal)

== ENCOUNTER → 2023-06-01 | Outpatient (CLI) | payer MEDICARE, BC ==
[~2023-06-01] MED LIST changes: +ACET-683 PO; +BISA10SU PR; +DICL1PAT6 TOP; +FARX1TAB3 PO; +LIDO5TD TD; +META1POW PO; +METH-1164 PO; +MIRA1POW3 PO; +NAPR-849 PO; +OXYC-517 PO; +SENN-52 PO
== END ==
LOC: M CLY 11:51
PROVIDERS: ATTEND Nurse Practitioner Family
DX: R91.8 Other nonspecific abnormal finding of lung field (principal); M53.84 Other specified dorsopathies, thoracic region

== ENCOUNTER → 2023-06-02 | Outpatient (CLI) | payer MEDICARE, BC ==
[~2023-06-02] MED LIST changes: -ACET-683 PO; -BISA10SU PR; -DICL1PAT6 TOP; -LIDO5TD TD; -META1POW PO; -METH-1164 PO; -MIRA1POW3 PO; -NAPR-849 PO; -OXYC-517 PO; -SENN-52 PO
== END ==
LOC: M SOG 13:15
PROVIDERS: ATTEND Orthopaedic Surgery
DX: M48.54XD Collapsed vertebra, not elsewhere classified, thoracic region, subsequent encounter for fracture with routine healing (principal)

== ENCOUNTER → 2023-06-02 | Outpatient (CLI) | payer MEDICARE, BC, OTHER ==
[~2023-06-02] MED LIST changes: +GASTROGRAFIN SOLUTION 30ML As Ordered ONE; +ISOVUE-370 76% 100ML VIAL As Ordered ONE
== END ==
LOC: M RAD 14:08
PROVIDERS: ATTEND Nurse Practitioner Family
DX: R10.10 Upper abdominal pain, unspecified (principal); J90 Pleural effusion, not elsewhere classified; K80.20 Calculus of gallbladder without cholecystitis without obstruction; M16.0 Bilateral primary osteoarthritis of hip; N20.0 Calculus of kidney; N28.1 Cyst of kidney, acquired; R91.8 Other nonspecific abnormal finding of lung field; M48.54XD Collapsed vertebra, not elsewhere classified, thoracic region, subsequent encounter for fracture with routine healing
CPT/HCPCS: 71260; 72070; 74178; Q9963; Q9967

== ENCOUNTER 2023-06-05 11:49 | Inpatient (IN) | payer MEDICARE, BC, OTHER ==
[~2023-06-05] VITALS: Ht 180.3 cm; Wt 109.0 kg
[~2023-06-05 11:49] MED LIST changes: -FARX1TAB3 PO; -GASTROGRAFIN SOLUTION 30ML As Ordered ONE; -ISOVUE-370 76% 100ML VIAL As Ordered ONE
[2023-06-05] MEDS ORDERED: HYDROMORPHONE HCL 0.5 MG/ 0.5 ML SYRINGE IM ONE (14:25)
[2023-06-05] MEDS: HYDROMORPHONE HCL 0.5 MG/ 0.5 ML SYRINGE IV PRN ×2 (17:49→22:10)
[2023-06-05 17:59] LABS: BASO # 0.1 10^3/uL (0.0-0.2); BASO % 1.2 % (0.0-1.0); EOS # 0.2 10^3/uL (0.0-0.5); EOS % 2.7 % (0.0-3.0); HEMATOCRIT 47.1 % (42.0-52.0); HEMOGLOBIN 15.3 g/dl (13.5-17.5); LYMPH # 1.4 10^3/uL (1.5-5.0); LYMPH % 16.5 % (24.0-44.0); MEAN CORPUSCULAR HEMOGLOBIN 30.9 pg (27.0-33.0); MEAN CORPUSCULAR HGB CONC 32.5 g/dl (32.0-36.5); MEAN CORPUSCULAR VOLUME 95.2 fl (80.0-96.0); MONO # 0.9 10^3/uL (0.0-0.8); MONO % 10.4 % (2.0-8.0); NEUTROPHILS # 5.9 10^3/uL (1.5-8.5); NEUTROPHILS % 68.8 % (36.0-66.0); PLATELET COUNT, AUTOMATED 234 10^3/uL (150-450); RED BLOOD COUNT 4.95 10^6/uL (4.30-6.10); WHITE BLOOD COUNT 8.5 10^3/uL (4.0-10.0)
[2023-06-05 18:09] LABS: INR 1.01; PROTHROMBIN TIME 13.5 SECONDS (12.5-14.5)
[2023-06-05 18:33] LABS: ALBUMIN 3.9 G/DL (3.2-5.2); ALKALINE PHOSPHATASE 142 U/L (46-116); ALT/SGPT 24 U/L (7.0-40); AST/SGOT 42 U/L (<34); BILIRUBIN,TOTAL 0.6 MG/DL (0.3-1.2); BLOOD UREA NITROGEN 19 MG/DL (9-23); CALCIUM LEVEL 9.5 MG/DL (8.3-10.6); CARBON DIOXIDE LEVEL 30 MMOL/L (20-31); CHLORIDE LEVEL 102 MMOL/L (98-107); CREATININE FOR GFR 0.59 MG/DL (0.70-1.30); GLOMERULAR FILTRATION RATE > 60.0 (>42); GLUCOSE, FASTING 98 MG/DL (74-106); POTASSIUM SERUM 4.5 MMOL/L (3.5-5.1); SODIUM LEVEL 141 MMOL/L (136-145); TOTAL PROTEIN 7.3 G/DL (5.7-8.2)
[2023-06-05] MEDS ORDERED: CHLO125TA PO (20:27)
[2023-06-05] MEDS ORDERED: METF-838 PO (20:27)
[2023-06-05] MEDS ORDERED: ELIQ5TAB PO (20:27)
[2023-06-05] MEDS ORDERED: FARX1TAB3 PO (20:27)
[2023-06-05] MEDS ORDERED: LEVO175T2 PO (20:27)
[2023-06-05] MEDS ORDERED: HOME MED LIST COMPLETE! XX SCH (20:30)
[2023-06-05] MEDS ORDERED: LEVEMIR (INSULIN DETEMIR) 1 UNITS/0.01ML SC SCH (21:00)
[2023-06-05] MEDS ORDERED: ONDANSETRON 4MG 2ML VIAL IV ONE (21:45)
[2023-06-05] MEDS ORDERED: MAALOX 30 ML SUSP *UDC PO PRN (22:00)
[2023-06-05] MEDS ORDERED: PERCOCET 5MG/325MG TAB PO PRN ×2 (22:00)
[2023-06-05] MEDS ORDERED: MOM 30ML SUSPENSION UDC PO PRN (22:00)
[2023-06-05] MEDS ORDERED: ACETAMINOPHEN TAB 650MG DOSE (2X325MG) PO PRN (22:00)
[2023-06-05] MEDS ORDERED: HYDROMORPHONE HCL 0.5 MG/ 0.5 ML SYRINGE IV PRN ×2 (22:00)
[2023-06-05] MEDS ORDERED: METHOCARBAMOL 1,000 MG/10 ML VIAL IV ONE (22:15)
[2023-06-05] MEDS: APIXABAN 2.5 MG TAB (ELIQUIS) PO SCH (22:38)
[2023-06-05] MEDS: KETOROLAC 30 MG/ML 1ML VIAL IV SCH (22:39)
[2023-06-05] MEDS: PANTOPRAZOLE 40MG TAB (PROTONIX) PO SCH (22:39)
[2023-06-05 22:42] LABS: CK-MB VALUE MASS 1.6 NG/ML (<3.6)
[2023-06-05 22:43] LABS: MB/CK RELATIVE INDEX 1.83 (< OR =4)
[2023-06-05] MEDS ORDERED: PILL CUTTER 1 EACH XX PRN (22:50)
[2023-06-05] MEDS ORDERED: ASPIRIN 81MG CHEW TABLET PO ONE (23:00)
[2023-06-06 00:07] LABS: CK-MB VALUE MASS 1.5 NG/ML (<3.6)
[2023-06-06 00:11] LABS: MB/CK RELATIVE INDEX 1.51 (< OR =4)
[2023-06-06] MEDS ORDERED: LEVOTHYROXINE 25MCG TABLET (0.025MG) PO SCH (06:00)
[2023-06-06] MEDS ORDERED: LEVOTHYROXINE 150MCG TABLET (0.15MG) PO SCH (06:00)
[2023-06-06 06:08] LABS: HEMATOCRIT 43.6 % (42.0-52.0); MEAN CORPUSCULAR HGB CONC 32.1 g/dl (32.0-36.5); MEAN CORPUSCULAR VOLUME 96.5 fl (80.0-96.0); PLATELET COUNT, AUTOMATED 211 10^3/uL (150-450); RED BLOOD COUNT 4.52 10^6/uL (4.30-6.10); WHITE BLOOD COUNT 7.4 10^3/uL (4.0-10.0)
[2023-06-06] MEDS: KETOROLAC 30 MG/ML 1ML VIAL IV SCH (06:10)
[2023-06-06 06:34] LABS: BLOOD UREA NITROGEN 20 MG/DL (9-23); CALCIUM LEVEL 9.4 MG/DL (8.3-10.6); CARBON DIOXIDE LEVEL 30 MMOL/L (20-31); CHLORIDE LEVEL 100 MMOL/L (98-107); GLOMERULAR FILTRATION RATE > 60.0 (>42); GLUCOSE, FASTING 155 MG/DL (74-106); POTASSIUM SERUM 4.5 MMOL/L (3.5-5.1); SODIUM LEVEL 139 MMOL/L (136-145)
[2023-06-06] MEDS ORDERED: metFORMIN XR 500MG TAB *GLUCOPHAGE XR PO SCH (08:00)
[2023-06-06] MEDS ORDERED: DOCUSATE SODIUM 100MG CAPSULE PO SCH (09:00)
[2023-06-06] MEDS ORDERED: methocarbamoL 750 MG TAB PO SCH (09:00)
[2023-06-06] MEDS ORDERED: CHLORTHALIDONE 12.5MG PER 1/2 TABLET PO SCH (09:00)
[2023-06-06] MEDS ORDERED: DAPAGLIFLOZIN PROPANEDIOL 10MG TABLET (FARXIGA) PO SCH (09:00)
[2023-06-06] MEDS: APIXABAN 2.5 MG TAB (ELIQUIS) PO SCH ×2 (09:15→20:46)
[2023-06-06] MEDS: PANTOPRAZOLE 40MG TAB (PROTONIX) PO SCH ×2 (09:15→20:46)
[2023-06-06] MEDS ORDERED: ALPRAZolam 0.25 MG TAB PO ONE (09:35)
[2023-06-06] MEDS ORDERED: GLUCAGON INJ 1MG VIAL SC PRN (10:30)
[2023-06-06] MEDS ORDERED: DEXTROSE 50% 50ML SYRINGE IV PRN (10:30)
[2023-06-06] MEDS ORDERED: GLUCOSE 4GM CHEW TABLET PO PRN (10:30)
[2023-06-06] MEDS: LIDOCAINE 5% (LIDODERM) PATCH TD SCH (10:59)
[2023-06-06 12:30] VITALS: BP 149/80; TEMP 97.5; O2SAT 93
[2023-06-06] MEDS ORDERED: MAALOX 30 ML SUSP *UDC PO PRN (12:55)
[2023-06-06] MEDS ORDERED: ACETAMINOPHEN TAB 650MG DOSE (2X325MG) PO PRN (12:55)
[2023-06-06] MEDS ORDERED: MOM 30ML SUSPENSION UDC PO PRN (13:05)
[2023-06-06] MEDS ORDERED: PERCOCET 5MG/325MG TAB PO PRN (13:05)
[2023-06-06] MEDS: ASPIRIN 81MG ENTERIC TABLET PO SCH (13:21)
[2023-06-06] MEDS: INSULIN LISPRO (NovoLOG) PER UNIT SC SCH ×3 (13:22→20:40)
[2023-06-06 14:00] VITALS: BP 120/65; TEMP 97.3; O2SAT 92
[2023-06-06] MEDS: methocarbamoL 500 MG TAB PO SCH ×2 (16:33→20:46)
[2023-06-06] MEDS: PERCOCET 5MG/325MG TAB PO PRN ×2 (16:33→20:47)
[2023-06-06] MEDS: DOCUSATE SODIUM 100MG CAPSULE PO SCH (20:46)
[2023-06-06] MEDS: LEVEMIR (INSULIN DETEMIR) 1 UNITS/0.01ML SC SCH (20:47)
[2023-06-06 21:25] VITALS: BP 129/68; TEMP 97.5; O2SAT 94
[2023-06-06] MEDS: MORPHINE 2 MG/ML 1ML VIAL IV PRN (22:09)
[2023-06-07] MEDS: MORPHINE 2 MG/ML 1ML VIAL IV PRN (03:48)
[2023-06-07] MEDS: PERCOCET 5MG/325MG TAB PO PRN ×2 (04:14→08:17)
[2023-06-07] MEDS: LEVOTHYROXINE 150MCG TABLET (0.15MG) PO SCH (05:50)
[2023-06-07] MEDS: LEVOTHYROXINE 25MCG TABLET (0.025MG) PO SCH (05:50)
[2023-06-07 05:51] LABS: HEMATOCRIT 44.1 % (42.0-52.0); HEMOGLOBIN 14.1 g/dl (13.5-17.5); MEAN CORPUSCULAR HEMOGLOBIN 30.9 pg (27.0-33.0); MEAN CORPUSCULAR VOLUME 96.7 fl (80.0-96.0); PLATELET COUNT, AUTOMATED 216 10^3/uL (150-450); RED BLOOD COUNT 4.56 10^6/uL (4.30-6.10)
[2023-06-07 06:00] VITALS: BP 115/57; TEMP 98.5; O2SAT 91
[2023-06-07 06:18] LABS: BLOOD UREA NITROGEN 21 MG/DL (9-23); CALCIUM LEVEL 8.9 MG/DL (8.3-10.6); CARBON DIOXIDE LEVEL 29 MMOL/L (20-31); CHLORIDE LEVEL 103 MMOL/L (98-107); CREATININE FOR GFR 0.69 MG/DL (0.70-1.30); GLOMERULAR FILTRATION RATE > 60.0 (>42); GLUCOSE, FASTING 136 MG/DL (74-106); MAGNESIUM LEVEL 1.6 MG/DL (1.8-2.4); POTASSIUM SERUM 3.8 MMOL/L (3.5-5.1); SODIUM LEVEL 142 MMOL/L (136-145)
[2023-06-07] MEDS: INSULIN LISPRO (NovoLOG) PER UNIT SC SCH ×4 (08:16→21:08)
[2023-06-07] MEDS: APIXABAN 2.5 MG TAB (ELIQUIS) PO SCH ×2 (08:16→20:50)
[2023-06-07] MEDS: PANTOPRAZOLE 40MG TAB (PROTONIX) PO SCH ×2 (08:16→20:51)
[2023-06-07] MEDS: ASPIRIN 81MG ENTERIC TABLET PO SCH (08:17)
[2023-06-07] MEDS: methocarbamoL 500 MG TAB PO SCH ×3 (08:17→20:50)
[2023-06-07] MEDS: CHLORTHALIDONE 12.5MG PER 1/2 TABLET PO SCH (08:17)
[2023-06-07] MEDS: MAGNESIUM OXIDE 400MG TAB (MAG-OX) PO SCH ×3 (08:17→20:50)
[2023-06-07] MEDS: DOCUSATE SODIUM 100MG CAPSULE PO SCH ×2 (08:17→20:51)
[2023-06-07] MEDS: LIDOCAINE 5% (LIDODERM) PATCH TD SCH (08:19)
[2023-06-07] MEDS ORDERED: SENNA 8.6 MG TAB (SENOKOT) PO PRN (10:05)
[2023-06-07] MEDS ORDERED: ONDANSETRON 4MG ORAL DISINTEGRATING TAB SL PRN (12:10)
[2023-06-07] MEDS: MIRALAX *UNIT DOSE* 17GM PACKET PO SCH ×2 (12:37→20:49)
[2023-06-07] MEDS: METAMUCIL (PSYLLIUM) PACKET PO SCH ×2 (12:37→20:49)
[2023-06-07] MEDS: DICLOFENAC EPOLAMINE 1.3% PATCH TOP SCH ×2 (12:37→20:49)
[2023-06-07] MEDS: ACETAMINOPHEN 500 MG TAB PO SCH ×2 (12:38→17:42)
[2023-06-07 14:00] VITALS: BP 118/60; TEMP 97.5; O2SAT 92
[2023-06-07 16:10] VITALS: O2SAT 91
[2023-06-07 20:18] VITALS: BP 145/69; TEMP 97.9; O2SAT 91
[2023-06-07] MEDS: oxyCODONE 5MG TAB PO PRN (20:51)
[2023-06-07] MEDS: LEVEMIR (INSULIN DETEMIR) 1 UNITS/0.01ML SC SCH (20:52)
[2023-06-08] MEDS: ACETAMINOPHEN 500 MG TAB PO SCH ×4 (00:19→17:08)
[2023-06-08 05:25] VITALS: BP 125/77; TEMP 97.2; O2SAT 92
[2023-06-08] MEDS: LEVOTHYROXINE 25MCG TABLET (0.025MG) PO SCH (06:05)
[2023-06-08] MEDS: LEVOTHYROXINE 150MCG TABLET (0.15MG) PO SCH (06:05)
[2023-06-08] MEDS: APIXABAN 2.5 MG TAB (ELIQUIS) PO SCH ×2 (08:00→20:21)
[2023-06-08] MEDS: MAGNESIUM OXIDE 400MG TAB (MAG-OX) PO SCH ×3 (08:00→20:20)
[2023-06-08] MEDS: ASPIRIN 81MG ENTERIC TABLET PO SCH (08:00)
[2023-06-08] MEDS: DOCUSATE SODIUM 100MG CAPSULE PO SCH ×2 (08:00→20:20)
[2023-06-08] MEDS: CHLORTHALIDONE 12.5MG PER 1/2 TABLET PO SCH (08:00)
[2023-06-08] MEDS: LACTULOSE 20GM/30ML SYRUP UDC PO SCH ×4 (08:00→20:19)
[2023-06-08] MEDS: PANTOPRAZOLE 40MG TAB (PROTONIX) PO SCH ×2 (08:00→20:20)
[2023-06-08] MEDS: DICLOFENAC EPOLAMINE 1.3% PATCH TOP SCH ×2 (08:01→20:23)
[2023-06-08] MEDS: METAMUCIL (PSYLLIUM) PACKET PO SCH ×2 (08:01→20:20)
[2023-06-08] MEDS: INSULIN LISPRO (NovoLOG) PER UNIT SC SCH ×4 (08:01→20:22)
[2023-06-08] MEDS: MIRALAX *UNIT DOSE* 17GM PACKET PO SCH ×2 (08:01→20:21)
[2023-06-08] MEDS: LIDOCAINE 5% (LIDODERM) PATCH TD SCH (08:01)
[2023-06-08 08:22] LABS: BASO % 0.6 % (0.0-1.0); EOS # 0.1 10^3/uL (0.0-0.5); EOS % 0.9 % (0.0-3.0); HEMATOCRIT 44.3 % (42.0-52.0); HEMOGLOBIN 14.4 g/dl (13.5-17.5); LYMPH # 0.9 10^3/uL (1.5-5.0); LYMPH % 14.3 % (24.0-44.0); MEAN CORPUSCULAR HEMOGLOBIN 31.1 pg (27.0-33.0); MEAN CORPUSCULAR HGB CONC 32.5 g/dl (32.0-36.5); MEAN CORPUSCULAR VOLUME 95.7 fl (80.0-96.0); MONO # 0.7 10^3/uL (0.0-0.8); NEUTROPHILS # 4.7 10^3/uL (1.5-8.5); NEUTROPHILS % 72.9 % (36.0-66.0); PLATELET COUNT, AUTOMATED 227 10^3/uL (150-450); RED BLOOD COUNT 4.63 10^6/uL (4.30-6.10); WHITE BLOOD COUNT 6.4 10^3/uL (4.0-10.0)
[2023-06-08 08:52] LABS: BLOOD UREA NITROGEN 20 MG/DL (9-23); CALCIUM LEVEL 9.7 MG/DL (8.3-10.6); CARBON DIOXIDE LEVEL 33 MMOL/L (20-31); CHLORIDE LEVEL 102 MMOL/L (98-107); CREATININE FOR GFR 0.74 MG/DL (0.70-1.30); GLOMERULAR FILTRATION RATE > 60.0 (>42); GLUCOSE, FASTING 203 MG/DL (74-106); POTASSIUM SERUM 4.2 MMOL/L (3.5-5.1); SODIUM LEVEL 143 MMOL/L (136-145)
[2023-06-08] MEDS ORDERED: FLEET OIL RETENTION ENEMA PR SCH (09:00)
[2023-06-08] MEDS: methocarbamoL 500 MG TAB PO SCH ×3 (10:40→20:20)
[2023-06-08] MEDS: oxyCODONE 5MG TAB PO PRN (12:49)
[2023-06-08 14:00] VITALS: BP 127/76; TEMP 97.2; O2SAT 87
[2023-06-08] MEDS: BISACODYL 10MG SUPP PR SCH ×2 (14:35→20:22)
[2023-06-08] MEDS: LEVEMIR (INSULIN DETEMIR) 1 UNITS/0.01ML SC SCH (20:21)
[2023-06-08 20:32] VITALS: BP 150/86; TEMP 97.7; O2SAT 92
[2023-06-09] MEDS: LACTULOSE 20GM/30ML SYRUP UDC PO SCH ×6 (01:00→21:00)
[2023-06-09] MEDS: ACETAMINOPHEN 500 MG TAB PO SCH ×4 (01:07→17:52)
[2023-06-09 05:55] LABS: HEMATOCRIT 44.5 % (42.0-52.0); HEMOGLOBIN 14.4 g/dl (13.5-17.5); MEAN CORPUSCULAR HEMOGLOBIN 30.6 pg (27.0-33.0); MEAN CORPUSCULAR HGB CONC 32.4 g/dl (32.0-36.5); MEAN CORPUSCULAR VOLUME 94.7 fl (80.0-96.0); PLATELET COUNT, AUTOMATED 231 10^3/uL (150-450); WHITE BLOOD COUNT 6.6 10^3/uL (4.0-10.0)
[2023-06-09 06:00] VITALS: BP 128/69; TEMP 98.1; O2SAT 92
[2023-06-09] MEDS: MORPHINE 2 MG/ML 1ML VIAL IV PRN (06:00)
[2023-06-09] MEDS: LEVOTHYROXINE 25MCG TABLET (0.025MG) PO SCH (06:01)
[2023-06-09] MEDS: LEVOTHYROXINE 150MCG TABLET (0.15MG) PO SCH (06:01)
[2023-06-09 06:12] LABS: ERYTHROCYTE SEDIMENTATION RATE 74 mm/hr (0-20)
[2023-06-09 06:24] LABS: BLOOD UREA NITROGEN 19 MG/DL (9-23); CALCIUM LEVEL 9.5 MG/DL (8.3-10.6); CARBON DIOXIDE LEVEL 32 MMOL/L (20-31); CHLORIDE LEVEL 102 MMOL/L (98-107); CREATININE FOR GFR 0.62 MG/DL (0.70-1.30); GLOMERULAR FILTRATION RATE > 60.0 (>42); GLUCOSE, FASTING 200 MG/DL (74-106); IRON (FE) 59 UG/DL (65-175); PERCENT SATURATION 18.8 % (19.7-50.0); POTASSIUM SERUM 4.4 MMOL/L (3.5-5.1); PTH INTACT 40.9 PG/ML (18.5-88.0); SODIUM LEVEL 143 MMOL/L (136-145); TOTAL IRON BINDING CAPACITY 314 UG/DL (250-425)
[2023-06-09 06:25] LABS: FERRITIN 51.7 NG/ML (10.5-307.3); FOLATE > 24.00 NG/ML (>5.4); VITAMIN B12 LEVEL 469 PG/ML (211-911)
[2023-06-09] MEDS: INSULIN LISPRO (NovoLOG) PER UNIT SC SCH ×4 (08:37→20:20)
[2023-06-09] MEDS: APIXABAN 2.5 MG TAB (ELIQUIS) PO SCH ×2 (08:38→20:21)
[2023-06-09] MEDS: MAGNESIUM OXIDE 400MG TAB (MAG-OX) PO SCH ×3 (08:38→20:21)
[2023-06-09] MEDS: PANTOPRAZOLE 40MG TAB (PROTONIX) PO SCH ×2 (08:38→20:21)
[2023-06-09] MEDS: ASPIRIN 81MG ENTERIC TABLET PO SCH (08:38)
[2023-06-09] MEDS: CHLORTHALIDONE 12.5MG PER 1/2 TABLET PO SCH (08:38)
[2023-06-09] MEDS: methocarbamoL 500 MG TAB PO SCH ×3 (08:38→20:21)
[2023-06-09] MEDS: BISACODYL 10MG SUPP PR SCH ×2 (08:39→21:00)
[2023-06-09] MEDS: LIDOCAINE 5% (LIDODERM) PATCH TD SCH (08:39)
[2023-06-09] MEDS: DICLOFENAC EPOLAMINE 1.3% PATCH TOP SCH ×2 (08:39→20:19)
[2023-06-09] MEDS: MIRALAX *UNIT DOSE* 17GM PACKET PO SCH ×2 (08:40→20:20)
[2023-06-09] MEDS: SENOKOT S TAB PO SCH ×2 (08:40→20:21)
[2023-06-09] MEDS: METAMUCIL (PSYLLIUM) PACKET PO SCH ×2 (08:40→20:20)
[2023-06-09] MEDS ORDERED: SENNA 8.6 MG TAB (SENOKOT) PO SCH (09:00)
[2023-06-09 10:15] VITALS: O2SAT 91
[2023-06-09] MEDS: ALPRAZolam 0.25 MG TAB PO PRN (11:29)
[2023-06-09 14:00] VITALS: BP 138/86; TEMP 97.5; O2SAT 92
[2023-06-09] MEDS: oxyCODONE 5MG TAB PO PRN ×2 (15:54→20:23)
[2023-06-09 16:49] VITALS: O2SAT 89
[2023-06-09] MEDS: LEVEMIR (INSULIN DETEMIR) 1 UNITS/0.01ML SC SCH (20:21)
[2023-06-09 20:27] VITALS: BP 140/83; TEMP 97.2; O2SAT 94
[2023-06-10] MEDS: LACTULOSE 20GM/30ML SYRUP UDC PO SCH ×3 (01:00→08:55)
[2023-06-10 05:01] VITALS: BP 140/85; TEMP 97.5; O2SAT 90
[2023-06-10] MEDS: oxyCODONE 5MG TAB PO PRN ×3 (05:10→13:13)
[2023-06-10] MEDS: LEVOTHYROXINE 25MCG TABLET (0.025MG) PO SCH (05:19)
[2023-06-10] MEDS: LEVOTHYROXINE 150MCG TABLET (0.15MG) PO SCH (05:19)
[2023-06-10] MEDS: ACETAMINOPHEN 500 MG TAB PO SCH ×5 (05:20→23:25)
[2023-06-10 06:11] LABS: HEMOGLOBIN 14.7 g/dl (13.5-17.5); MEAN CORPUSCULAR HEMOGLOBIN 30.8 pg (27.0-33.0); MEAN CORPUSCULAR VOLUME 96.4 fl (80.0-96.0); PLATELET COUNT, AUTOMATED 236 10^3/uL (150-450); RED BLOOD COUNT 4.77 10^6/uL (4.30-6.10); WHITE BLOOD COUNT 6.9 10^3/uL (4.0-10.0)
[2023-06-10 06:36] LABS: BLOOD UREA NITROGEN 20 MG/DL (9-23); CALCIUM LEVEL 9.6 MG/DL (8.3-10.6); CARBON DIOXIDE LEVEL 31 MMOL/L (20-31); CHLORIDE LEVEL 103 MMOL/L (98-107); CREATININE FOR GFR 0.71 MG/DL (0.70-1.30); GLOMERULAR FILTRATION RATE > 60.0 (>42); GLUCOSE, FASTING 158 MG/DL (74-106); SODIUM LEVEL 144 MMOL/L (136-145)
[2023-06-10] MEDS: ASPIRIN 81MG ENTERIC TABLET PO SCH (08:54)
[2023-06-10] MEDS: PANTOPRAZOLE 40MG TAB (PROTONIX) PO SCH ×2 (08:54→21:06)
[2023-06-10] MEDS: methocarbamoL 500 MG TAB PO SCH ×3 (08:54→21:13)
[2023-06-10] MEDS: SENOKOT S TAB PO SCH ×3 (08:54→21:06)
[2023-06-10] MEDS: APIXABAN 2.5 MG TAB (ELIQUIS) PO SCH ×2 (08:55→21:05)
[2023-06-10] MEDS: DICLOFENAC EPOLAMINE 1.3% PATCH TOP SCH ×2 (08:55→21:16)
[2023-06-10] MEDS: BISACODYL 10MG SUPP PR SCH ×2 (08:56→21:00)
[2023-06-10] MEDS: MIRALAX *UNIT DOSE* 17GM PACKET PO SCH ×2 (08:56→21:04)
[2023-06-10] MEDS: LIDOCAINE 5% (LIDODERM) PATCH TD SCH (08:56)
[2023-06-10] MEDS: METAMUCIL (PSYLLIUM) PACKET PO SCH ×2 (08:56→21:04)
[2023-06-10] MEDS: CHLORTHALIDONE 12.5MG PER 1/2 TABLET PO SCH (08:56)
[2023-06-10] MEDS: INSULIN LISPRO (NovoLOG) PER UNIT SC SCH ×4 (08:57→21:07)
[2023-06-10] MEDS: NAPROXEN 250 MG TAB PO SCH ×2 (10:57→21:05)
[2023-06-10 14:00] VITALS: BP 128/61; TEMP 97.2; O2SAT 90
[2023-06-10 20:23] VITALS: BP 126/83; TEMP 97.3; O2SAT 93
[2023-06-10] MEDS: LEVEMIR (INSULIN DETEMIR) 1 UNITS/0.01ML SC SCH (21:06)
[2023-06-10 21:30] VITALS: O2SAT 94
[2023-06-11] MEDS: oxyCODONE 5MG TAB PO PRN ×4 (02:18→23:20)
[2023-06-11] MEDS: LEVOTHYROXINE 150MCG TABLET (0.15MG) PO SCH (05:51)
[2023-06-11] MEDS: LEVOTHYROXINE 25MCG TABLET (0.025MG) PO SCH (05:51)
[2023-06-11] MEDS: ACETAMINOPHEN 500 MG TAB PO SCH ×4 (05:52→23:22)
[2023-06-11 06:20] VITALS: BP 134/80; TEMP 97.3; O2SAT 93
[2023-06-11 06:27] LABS: HEMATOCRIT 44.3 % (42.0-52.0); HEMOGLOBIN 14.1 g/dl (13.5-17.5); MEAN CORPUSCULAR HEMOGLOBIN 30.9 pg (27.0-33.0); MEAN CORPUSCULAR HGB CONC 31.8 g/dl (32.0-36.5); MEAN CORPUSCULAR VOLUME 97.1 fl (80.0-96.0); PLATELET COUNT, AUTOMATED 222 10^3/uL (150-450); RED BLOOD COUNT 4.56 10^6/uL (4.30-6.10)
[2023-06-11 06:52] LABS: BLOOD UREA NITROGEN 27 MG/DL (9-23); CALCIUM LEVEL 9.5 MG/DL (8.3-10.6); CARBON DIOXIDE LEVEL 34 MMOL/L (20-31); CHLORIDE LEVEL 102 MMOL/L (98-107); CREATININE FOR GFR 0.92 MG/DL (0.70-1.30); GLOMERULAR FILTRATION RATE > 60.0 (>42); GLUCOSE, FASTING 190 MG/DL (74-106); POTASSIUM SERUM 4.2 MMOL/L (3.5-5.1); SODIUM LEVEL 141 MMOL/L (136-145)
[2023-06-11] MEDS: INSULIN LISPRO (NovoLOG) PER UNIT SC SCH ×4 (08:14→20:50)
[2023-06-11] MEDS: DICLOFENAC EPOLAMINE 1.3% PATCH TOP SCH ×2 (08:14→20:50)
[2023-06-11] MEDS: LIDOCAINE 5% (LIDODERM) PATCH TD SCH (08:14)
[2023-06-11] MEDS: APIXABAN 2.5 MG TAB (ELIQUIS) PO SCH ×2 (08:15→20:51)
[2023-06-11] MEDS: methocarbamoL 500 MG TAB PO SCH ×3 (08:16→20:50)
[2023-06-11] MEDS: CHLORTHALIDONE 12.5MG PER 1/2 TABLET PO SCH (08:16)
[2023-06-11] MEDS: SENOKOT S TAB PO SCH ×2 (08:16→20:51)
[2023-06-11] MEDS: NAPROXEN 250 MG TAB PO SCH ×2 (08:16→20:51)
[2023-06-11] MEDS: ASPIRIN 81MG ENTERIC TABLET PO SCH (08:16)
[2023-06-11] MEDS: PANTOPRAZOLE 40MG TAB (PROTONIX) PO SCH ×2 (08:16→20:51)
[2023-06-11] MEDS: MIRALAX *UNIT DOSE* 17GM PACKET PO SCH ×2 (08:17→20:50)
[2023-06-11] MEDS: BISACODYL 10MG SUPP PR SCH ×2 (08:17→20:40)
[2023-06-11] MEDS: METAMUCIL (PSYLLIUM) PACKET PO SCH ×2 (08:17→20:39)
[2023-06-11] MEDS: ALPRAZolam 0.25 MG TAB PO PRN (11:31)
[2023-06-11 14:00] VITALS: BP 124/69; TEMP 97.3; O2SAT 90
[2023-06-11 19:46] VITALS: BP 144/73; TEMP 97.3; O2SAT 92
[2023-06-11] MEDS: LEVEMIR (INSULIN DETEMIR) 1 UNITS/0.01ML SC SCH (20:49)
[2023-06-12] MEDS: LEVOTHYROXINE 150MCG TABLET (0.15MG) PO SCH (05:42)
[2023-06-12] MEDS: LEVOTHYROXINE 25MCG TABLET (0.025MG) PO SCH (05:42)
[2023-06-12] MEDS: oxyCODONE 5MG TAB PO PRN ×3 (05:43→21:36)
[2023-06-12] MEDS: ACETAMINOPHEN 500 MG TAB PO SCH ×3 (05:43→16:51)
[2023-06-12 05:45] LABS: HEMATOCRIT 45.9 % (42.0-52.0); HEMOGLOBIN 14.7 g/dl (13.5-17.5); MEAN CORPUSCULAR HEMOGLOBIN 30.8 pg (27.0-33.0); MEAN CORPUSCULAR VOLUME 96.2 fl (80.0-96.0); PLATELET COUNT, AUTOMATED 218 10^3/uL (150-450); RED BLOOD COUNT 4.77 10^6/uL (4.30-6.10); WHITE BLOOD COUNT 6.2 10^3/uL (4.0-10.0)
[2023-06-12 06:17] LABS: BLOOD UREA NITROGEN 28 MG/DL (9-23); CALCIUM LEVEL 9.3 MG/DL (8.3-10.6); CARBON DIOXIDE LEVEL 31 MMOL/L (20-31); CHLORIDE LEVEL 103 MMOL/L (98-107); CREATININE FOR GFR 0.89 MG/DL (0.70-1.30); GLOMERULAR FILTRATION RATE > 60.0 (>42); GLUCOSE, FASTING 181 MG/DL (74-106); POTASSIUM SERUM 4.1 MMOL/L (3.5-5.1); SODIUM LEVEL 144 MMOL/L (136-145)
[2023-06-12 06:45] VITALS: BP 119/67; TEMP 97.5; O2SAT 91
[2023-06-12] MEDS: DICLOFENAC EPOLAMINE 1.3% PATCH TOP SCH ×2 (08:08→20:44)
[2023-06-12] MEDS: LIDOCAINE 5% (LIDODERM) PATCH TD SCH (08:08)
[2023-06-12] MEDS: INSULIN LISPRO (NovoLOG) PER UNIT SC SCH ×4 (08:09→20:45)
[2023-06-12] MEDS: SENOKOT S TAB PO SCH ×2 (08:09→20:42)
[2023-06-12] MEDS: ASPIRIN 81MG ENTERIC TABLET PO SCH (08:09)
[2023-06-12] MEDS: PANTOPRAZOLE 40MG TAB (PROTONIX) PO SCH ×2 (08:10→20:43)
[2023-06-12] MEDS: APIXABAN 2.5 MG TAB (ELIQUIS) PO SCH ×2 (08:10→20:42)
[2023-06-12] MEDS: NAPROXEN 250 MG TAB PO SCH ×2 (08:10→20:43)
[2023-06-12] MEDS: CHLORTHALIDONE 12.5MG PER 1/2 TABLET PO SCH (08:10)
[2023-06-12] MEDS: methocarbamoL 500 MG TAB PO SCH ×3 (08:10→20:42)
[2023-06-12] MEDS: METAMUCIL (PSYLLIUM) PACKET PO SCH ×2 (08:11→20:42)
[2023-06-12] MEDS: BISACODYL 10MG SUPP PR SCH ×3 (08:11→20:43)
[2023-06-12] MEDS: MIRALAX *UNIT DOSE* 17GM PACKET PO SCH ×2 (08:11→20:42)
[2023-06-12] MEDS: ALPRAZolam 0.25 MG TAB PO PRN (12:41)
[2023-06-12 14:00] VITALS: BP 124/65; TEMP 97.5; O2SAT 91
[2023-06-12 19:40] VITALS: BP 139/83; TEMP 97.5; O2SAT 94
[2023-06-12] MEDS: LEVEMIR (INSULIN DETEMIR) 1 UNITS/0.01ML SC SCH (20:44)
[2023-06-13] MEDS: ACETAMINOPHEN 500 MG TAB PO SCH ×4 (00:25→18:19)
[2023-06-13] MEDS: oxyCODONE 5MG TAB PO PRN ×4 (04:08→18:19)
[2023-06-13 05:12] VITALS: BP 125/64; TEMP 97.5; O2SAT 91
[2023-06-13] MEDS: LEVOTHYROXINE 150MCG TABLET (0.15MG) PO SCH (05:21)
[2023-06-13] MEDS: LEVOTHYROXINE 25MCG TABLET (0.025MG) PO SCH (05:21)
[2023-06-13 05:52] LABS: HEMATOCRIT 44.8 % (42.0-52.0); HEMOGLOBIN 14.7 g/dl (13.5-17.5); MEAN CORPUSCULAR HEMOGLOBIN 31.1 pg (27.0-33.0); MEAN CORPUSCULAR HGB CONC 32.8 g/dl (32.0-36.5); MEAN CORPUSCULAR VOLUME 94.7 fl (80.0-96.0); PLATELET COUNT, AUTOMATED 235 10^3/uL (150-450); RED BLOOD COUNT 4.73 10^6/uL (4.30-6.10); WHITE BLOOD COUNT 7.3 10^3/uL (4.0-10.0)
[2023-06-13 06:25] LABS: BLOOD UREA NITROGEN 27 MG/DL (9-23); CALCIUM LEVEL 9.8 MG/DL (8.3-10.6); CARBON DIOXIDE LEVEL 28 MMOL/L (20-31); CHLORIDE LEVEL 104 MMOL/L (98-107); CREATININE FOR GFR 0.74 MG/DL (0.70-1.30); GLOMERULAR FILTRATION RATE > 60.0 (>42); GLUCOSE, FASTING 198 MG/DL (74-106); SODIUM LEVEL 139 MMOL/L (136-145)
[2023-06-13] MEDS ORDERED: PERCOCET 5MG/325MG TAB PO PRN (07:30)
[2023-06-13] MEDS ORDERED: SENN-52 PO (07:35)
[2023-06-13] MEDS ORDERED: NAPR-849 PO (07:35)
[2023-06-13] MEDS ORDERED: LIDO5TD TD (07:35)
[2023-06-13] MEDS ORDERED: META1POW PO (07:35)
[2023-06-13] MEDS ORDERED: OXYC-517 PO (07:35)
[2023-06-13] MEDS ORDERED: MIRA1POW3 PO (07:35)
[2023-06-13] MEDS ORDERED: DICL1PAT6 TOP (07:35)
[2023-06-13] MEDS ORDERED: BISA10SU PR (07:35)
[2023-06-13] MEDS ORDERED: ACET-683 PO (07:35)
[2023-06-13] MEDS ORDERED: METH-1164 PO (07:35)
[2023-06-13] MEDS: INSULIN LISPRO (NovoLOG) PER UNIT SC SCH ×4 (07:44→21:00)
[2023-06-13] MEDS: ALPRAZolam 0.25 MG TAB PO PRN (08:01)
[2023-06-13] MEDS: ASPIRIN 81MG ENTERIC TABLET PO SCH (08:02)
[2023-06-13] MEDS: APIXABAN 2.5 MG TAB (ELIQUIS) PO SCH ×2 (08:02→20:29)
[2023-06-13] MEDS: methocarbamoL 500 MG TAB PO SCH ×3 (08:02→20:30)
[2023-06-13] MEDS: CETIRIZINE (ZyrTEC) 10 MG TAB PO SCH (08:02)
[2023-06-13] MEDS: NAPROXEN 250 MG TAB PO SCH ×2 (08:02→20:30)
[2023-06-13] MEDS: PANTOPRAZOLE 40MG TAB (PROTONIX) PO SCH ×2 (08:02→20:30)
[2023-06-13] MEDS: DICLOFENAC EPOLAMINE 1.3% PATCH TOP SCH ×2 (08:03→20:32)
[2023-06-13] MEDS: CHLORTHALIDONE 12.5MG PER 1/2 TABLET PO SCH (08:03)
[2023-06-13] MEDS: DAPAGLIFLOZIN PROPANEDIOL 10MG TABLET (FARXIGA) PO SCH (08:03)
[2023-06-13] MEDS: MULTIVITAMINS/MINERALS THERAP 1 TAB PO SCH (08:03)
[2023-06-13] MEDS: LIDOCAINE 5% (LIDODERM) PATCH TD SCH (08:04)
[2023-06-13] MEDS: BISACODYL 10MG SUPP PR SCH (09:00)
[2023-06-13] MEDS: METAMUCIL (PSYLLIUM) PACKET PO SCH ×2 (09:00→20:31)
[2023-06-13] MEDS: SENOKOT S TAB PO SCH (09:00)
[2023-06-13] MEDS ORDERED: LEVEMIR (INSULIN DETEMIR) 1 UNITS/0.01ML SC SCH (09:00)
[2023-06-13] MEDS: MIRALAX *UNIT DOSE* 17GM PACKET PO SCH (09:00)
[2023-06-13] MEDS ORDERED: MIRALAX *UNIT DOSE* 17GM PACKET PO PRN (13:35)
[2023-06-13] MEDS: metFORMIN XR 500MG TAB *GLUCOPHAGE XR PO SCH ×2 (13:43→20:31)
[2023-06-13] MEDS: FERROUS SULFATE 325MG TAB PO SCH ×2 (13:45→20:29)
[2023-06-13 14:00] VITALS: BP 122/64; TEMP 97.7; O2SAT 90
[2023-06-13] MEDS: DOCUSATE SODIUM 100MG CAPSULE PO SCH (20:30)
[2023-06-13] MEDS: LEVEMIR (INSULIN DETEMIR) 1 UNITS/0.01ML SC SCH (20:35)
[2023-06-13] MEDS ORDERED: MAGNESIUM OXIDE 400MG TAB (MAG-OX) PO SCH (21:00)
[2023-06-13] MEDS ORDERED: SENNA 8.6 MG TAB (SENOKOT) PO SCH (21:00)
[2023-06-14] MEDS: ACETAMINOPHEN 500 MG TAB PO SCH ×3 (00:32→12:51)
[2023-06-14 05:00] VITALS: BP 122/83; TEMP 97.5; O2SAT 90
[2023-06-14] MEDS: LEVOTHYROXINE 150MCG TABLET (0.15MG) PO SCH (05:31)
[2023-06-14] MEDS: LEVOTHYROXINE 25MCG TABLET (0.025MG) PO SCH (05:32)
[2023-06-14] MEDS: oxyCODONE 5MG TAB PO PRN ×2 (05:33→09:35)
[2023-06-14 05:51] LABS: HEMATOCRIT 45.4 % (42.0-52.0); HEMOGLOBIN 14.6 g/dl (13.5-17.5); MEAN CORPUSCULAR HEMOGLOBIN 30.9 pg (27.0-33.0); MEAN CORPUSCULAR HGB CONC 32.2 g/dl (32.0-36.5); PLATELET COUNT, AUTOMATED 234 10^3/uL (150-450); RED BLOOD COUNT 4.73 10^6/uL (4.30-6.10); WHITE BLOOD COUNT 5.7 10^3/uL (4.0-10.0)
[2023-06-14 06:03] VITALS: O2SAT 94
[2023-06-14 06:14] LABS: BLOOD UREA NITROGEN 32 MG/DL (9-23); CALCIUM LEVEL 9.6 MG/DL (8.3-10.6); CARBON DIOXIDE LEVEL 25 MMOL/L (20-31); CHLORIDE LEVEL 106 MMOL/L (98-107); GLOMERULAR FILTRATION RATE > 60.0 (>42); GLUCOSE, FASTING 149 MG/DL (74-106); SODIUM LEVEL 144 MMOL/L (136-145)
[2023-06-14] MEDS: METAMUCIL (PSYLLIUM) PACKET PO SCH (08:03)
[2023-06-14] MEDS: INSULIN LISPRO (NovoLOG) PER UNIT SC SCH ×2 (08:28→12:00)
[2023-06-14] MEDS: ASPIRIN 81MG ENTERIC TABLET PO SCH (08:28)
[2023-06-14] MEDS: metFORMIN XR 500MG TAB *GLUCOPHAGE XR PO SCH (08:29)
[2023-06-14] MEDS: APIXABAN 2.5 MG TAB (ELIQUIS) PO SCH (08:30)
[2023-06-14] MEDS: PANTOPRAZOLE 40MG TAB (PROTONIX) PO SCH (08:30)
[2023-06-14] MEDS: CETIRIZINE (ZyrTEC) 10 MG TAB PO SCH (08:30)
[2023-06-14] MEDS: DOCUSATE SODIUM 100MG CAPSULE PO SCH (08:30)
[2023-06-14] MEDS: NAPROXEN 250 MG TAB PO SCH (08:30)
[2023-06-14] MEDS: MULTIVITAMINS/MINERALS THERAP 1 TAB PO SCH (08:30)
[2023-06-14] MEDS: methocarbamoL 500 MG TAB PO SCH (08:31)
[2023-06-14] MEDS: FERROUS SULFATE 325MG TAB PO SCH (08:31)
[2023-06-14] MEDS: CHLORTHALIDONE 12.5MG PER 1/2 TABLET PO SCH (08:31)
[2023-06-14] MEDS: DAPAGLIFLOZIN PROPANEDIOL 10MG TABLET (FARXIGA) PO SCH (08:33)
[2023-06-14] MEDS: DICLOFENAC EPOLAMINE 1.3% PATCH TOP SCH (08:33)
[2023-06-14] MEDS: LIDOCAINE 5% (LIDODERM) PATCH TD SCH (08:34)
[2023-06-14] MEDS ORDERED: BISACODYL 10MG SUPP PR SCH (09:00)
[2023-06-14] MEDS: ALPRAZolam 0.25 MG TAB PO PRN (09:34)
== END 2023-06-14 13:02 | DRG 543 ==
LOC: M ED 11:49 → EDBD 11:49 → M ED INP 06-06 10:27 → ENRESERV 06-06 11:47 → M MSPAV 06-06 12:29
PROVIDERS: ADMIT Family Medicine; ATTEND Internal Medicine
DX: M84.68XA Pathological fracture in other disease, other site, initial encounter for fracture (principal); J98.11 Atelectasis; M54.50 Low back pain, unspecified; I48.91 Unspecified atrial fibrillation; I10 Essential (primary) hypertension; E03.9 Hypothyroidism, unspecified; E83.42 Hypomagnesemia; K21.9 Gastro-esophageal reflux disease without esophagitis; M40.204 Unspecified kyphosis, thoracic region; K59.00 Constipation, unspecified; F41.9 Anxiety disorder, unspecified; E11.9 Type 2 diabetes mellitus without complications; Z79.899 Other long term (current) drug therapy; Z79.4 Long term (current) use of insulin; K57.30 Diverticulosis of large intestine without perforation or abscess without bleeding

== ENCOUNTER → 2023-07-12 | Outpatient (REF) | payer MEDICARE, OTHER ==
[~2023-07-12] MED LIST changes: +ACET-683 PO; +BISA10SU PR; +DICL1PAT6 TOP; +FARX1TAB3 PO; +LIDO5TD TD; +META1POW PO; +METH-1164 PO; +MIRA1POW3 PO; +NAPR-849 PO; +OXYC-517 PO; +SENN-52 PO
== END ==
LOC: M SFHCCLAY 13:37
PROVIDERS: ATTEND Nurse Practitioner Family
DX: R31.9 Hematuria, unspecified (principal)

== ENCOUNTER → 2023-07-14 | Outpatient (REF) | payer MEDICARE, OTHER ==
[2023-07-14 17:44] LABS: APPEARANCE, URINE CLOUDY (CLEAR); BACTERIA, URINE AUTO NEGATIVE (NEGATIVE); BILIRUBIN, URINE AUTO NEGATIVE (NEGATIVE); BLOOD, URINE BLOOD 3+ (NEGATIVE); COLOR, URINE YELLOW (YELLOW); GLUCOSE, URINE (UA) AUTO 3+ mg/dL (NEGATIVE); KETONE, URINE AUTO NEGATIVE (NEGATIVE); LEUKOCYTE ESTERASE, URINE AUTO TRACE (NEGATIVE); NITRITE, URINE AUTO NEGATIVE (NEGATIVE); PROTEIN, URINE AUTO 1+ mg/dL (NEGATIVE); RBC, URINE AUTO TNTC /HPF (0-3); SPECIFIC GRAVITY URINE AUTO 1.028 (1.002-1.035); SQUAMOUS EPITHELIAL CELL UR AU 0 /HPF (0-6); UROBILINOGEN, URINE AUTO 0.2 mg/dL (0.0-2.0); WBC, URINE AUTO 1 /HPF (0-3)
== END ==
LOC: M SFHCCLAY 16:44
PROVIDERS: ATTEND Nurse Practitioner Family
DX: R31.9 Hematuria, unspecified (principal)